=== PATIENT | female | born 2000 | race American Indian/Alaskan Native ===

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

== ENCOUNTER 2018-04-22 19:19 | Emergency (ER) | payer SELFPAY ==
[2018-04-22 20:56] LABS: Alanine Aminotransferase 16 units/L (7-56); Albumin 3.8 g/dL (3.9-5); BUN/Creatinine Ratio 16; Blood Urea Nitrogen 14 mg/dL (7-17); Calcium 8.7 mg/dL (8.4-10.2); Hemolysis Index 11; Lipase 27 units/L (13-60)
[2018-04-22 20:58] LABS: Basophils % (Auto) 0.5 % (0.0-1.8); Eosinophils # (Auto) 0.1 K/mm3 (0.0-0.4); Eosinophils % (Auto) 0.5 % (0.0-4.3); Hematocrit 40.5 % (30.3-42.9); Hemoglobin 13.6 gm/dl (10.1-14.3); Lymphocytes # (Auto) 3.2 K/mm3 (1.2-5.4); Lymphocytes % (Auto) 32.5 % (13.4-35.0); Mean Corpuscular HGB Conc 34 % (30-34); Mean Corpuscular Hemoglobin 32 pg (28-32); Mean Corpuscular Volume 94 fl (79-97); Monocytes # (Auto) 0.7 K/mm3 (0.0-0.8); Monocytes % (Auto) 7.3 % (0.0-7.3); Platelet Count 218 K/mm3 (140-440); Red Blood Count 4.29 M/mm3 (3.65-5.03)
[2018-04-22 22:16] LABS: Bilirubin,Urine NEG (Negative); Blood,Urine NEG (Negative); Color,Urine Yellow (Yellow); Mucus,Urine 3+ /HPF
--- NOTE | 2018-04-23 01:38 | Emergency Department Report ---
ED Abdominal Pain HPI - General Chief Complaint: Abdominal Pain Stated Complaint: 3WKS STOMACH PAIN Time Seen by Provider: 04/23/18 01:37 Source: patient, RN notes reviewed Mode of arrival: Ambulatory Limitations: No Limitations - History of Present Illness Initial Comments: This is a 17-year-old female who is not known to this provider who presents to the ER with a complaint of suprapubic and lower quadrant abdominal pain. The pain is sharp, increases with palpation and decreases with rest. She reports nausea and vomiting. She reports vomiting 5 times yesterday. She hasn't really vomited today. She denies change in symptoms when taking a hot shower. She denies vaginal discharge, and urinary symptoms. She reports a positive test 3 weeks ago. She reports that her nausea has mostly resolved and her pain has mostly resolved as well. Pain does not radiate anywhere. MD Complaint: abdominal pain -: Gradual Location: LLQ, suprapubic Migration to: LLQ, suprapubic Severity: moderate Quality: cramping Consistency: other Improves With: other Worsens With: other Associated Symptoms: nausea, vomiting. denies: diarrhea, fever, chills, constipation, dysuria, hematemesis, hematochezia, melena, hematuria, anorexia, syncope - Related Data Previous Rx's Medication Instructions Recorded Last Taken Type Cyclobenzaprine [Flexeril] 10 mg PO BID PRN #10 tablet 12/08/17 Unknown Rx Ibuprofen [Motrin] 600 mg PO Q8H PRN #30 tablet 12/08/17 Unknown Rx Acetaminophen [Tylenol Arthritis] 650 mg PO Q6HR PRN #30 tablet.er 04/23/18 Unknown Rx Ibuprofen [Motrin] 600 mg PO Q8H PRN #30 tablet 04/23/18 Unknown Rx Ondansetron [Zofran Odt] 4 mg PO Q8HR PRN #20 tab.rapdis 04/23/18 Unknown Rx Allergies Allergy/AdvReac Type Severity Reaction Status Date / Time Penicillins Allergy Hives Verified 12/08/17 12:08 ED Review of Systems ROS: Stated complaint: 3WKS STOMACH PAIN Other details as noted in HPI Comment: All other systems reviewed and negative ED Past Medical Hx - Past Medical History Previous Medical History?: Yes Hx Asthma: Yes Additional medical history: vaginal delivery 02-04-2015 - Surgical History Past Surgical History?: Yes Additional Surgical History: tonsils and adenoids - Social History Smoking Status: Current Some Day Smoker Substance Use Type: None - Medications Home Medications: Home Medications Medication Instructions Recorded Confirmed Last Taken Type Cyclobenzaprine [Flexeril] 10 mg PO BID PRN #10 tablet 12/08/17 Unknown Rx Ibuprofen [Motrin] 600 mg PO Q8H PRN #30 tablet 12/08/17 Unknown Rx Acetaminophen [Tylenol Arthritis] 650 mg PO Q6HR PRN #30 tablet.er 04/23/18 Unknown Rx Ibuprofen [Motrin] 600 mg PO Q8H PRN #30 tablet 04/23/18 Unknown Rx Ondansetron [Zofran Odt] 4 mg PO Q8HR PRN #20 tab.rapdis 04/23/18 Unknown Rx ED Physical Exam - General Limitations: No Limitations General appearance: alert, in no apparent distress - Head Head exam: Present: atraumatic, normocephalic - Eye Eye exam: Present: normal appearance, EOMI. Absent: nystagmus - ENT ENT exam: Present: normal exam, normal orophraynx, mucous membranes moist, normal external ear exam - Neck Neck exam: Present: normal inspection, full ROM - Respiratory Respiratory exam: Present: normal lung sounds bilaterally. Absent: respiratory distress - Cardiovascular Cardiovascular Exam: Present: regular rate, normal rhythm, normal heart sounds. Absent: bradycardia, tachycardia, irregular rhythm, systolic murmur, diastolic murmur, rubs, gallop - GI/Abdominal GI/Abdominal exam: Present: soft, tenderness (suprapubic and left lower quadrant tenderness. There is no rebound, guarding or peritoneal signs), normal bowel sounds. Absent: distended, guarding, rebound, rigid, pulsatile mass - External exam: Present: normal external exam. Absent: lesions Speculum exam: Present: normal speculum exam. Absent: cervical discharge, vaginal bleeding Bi-manual exam: Present: normal bi-manual exam, other (chaperoned by nurse Vijaya Pruitt). Absent: cervical motion tendernes, adnexal tenderness, adnexal mass, uterine enlargement, uterine tenderness - Extremities Exam Extremities exam: Present: normal inspection, full ROM, normal capillary refill , other (2+ pulses noted in the bilateral upper, lower extremities. Compartments soft. No long bony tenderness. The pelvis is stable.). Absent: tenderness, pedal edema, joint swelling, calf tenderness - Back Exam Back exam: Present: normal inspection, full ROM. Absent: tenderness, CVA tenderness (R), paraspinal tenderness, vertebral tenderness - Neurological Exam Neurological exam: Present: alert, oriented X3, CN II-XII intact, normal gait, other (Extraocular movements intact. Tongue midline. No facial droop. Facial sensation intact to light touch in the V1, V2, V3 distribution bilaterally. 5 and 5 strength in 4 extremities.. Sensation is intact to light touch in 4 extremities.). Absent: motor sensory deficit - Psychiatric Psychiatric exam: Present: normal affect, normal mood - Skin Skin exam: Present: warm, dry, intact, normal color. Absent: rash ED Course Vital Signs 04/22/18 20:15 Temperature 98.7 F Pulse Rate 90 Respiratory 17 Rate Blood Pressure 107/72 O2 Sat by Pulse 100 Oximetry - Reevaluation(s) Reevaluation #1: 04/23/18 04:50 Differential diagnosis, including but not limited to: Constipation, ovarian cyst , ovarian torsion, pelvic inflammatory disease, appendicitis, miscarriage Assessment and plan: 17-year-old female with reported lower abdominal pain, nausea, now resolved. She is afebrile with reassuring vital signs. She had some lower abdominal tenderness but a benign gynecologic examination. Objective imaging studies are unremarkable. Patient felt improved after appropriate pain medication. Incidentally found to be mildly hypoglycemic on laboratory studies but not clinically, she was given oral feeds which she tolerated without difficulty, and her sugar improved. She can follow up with an outpatient primary care doctor or regional guide. 04/23/18 04:53 ED Medical Decision Making - Lab Data Result diagrams: 04/22/18 20:28 04/22/18 20:28 Vital Signs 04/22/18 20:15 Temperature 98.7 F Pulse Rate 90 Respiratory 17 Rate Blood Pressure 107/72 O2 Sat by Pulse 100 Oximetry Lab Results 04/22/18 04/22/18 04/22/18 Range/Units 20:28 20:28 20:28 WBC 9.9 (4.5-11.0) K/mm3 RBC 4.29 (3.65-5.03) M/mm3 Hgb 13.6 (10.1-14.3) gm/dl Hct 40.5 (30.3-42.9) % MCV 94 (79-97) fl MCH 32 (28-32) pg MCHC 34 (30-34) % RDW 13.0 L (13.2-15.2) % Plt Count 218 (140-440) K/mm3 Lymph % (Auto) 32.5 (13.4-35.0) % Mckenzie % (Auto) 7.3 (0.0-7.3) % Eos % (Auto) 0.5 (0.0-4.3) % Baso % (Auto) 0.5 (0.0-1.8) % Lymph # 3.2 (1.2-5.4) K/mm3 Mckenzie # 0.7 (0.0-0.8) K/mm3 Eos # 0.1 (0.0-0.4) K/mm3 Baso # 0.0 (0.0-0.1) K/mm3 Seg Neutrophils % 59.2 (40.0-70.0) % Seg Neutrophils # 5.9 (1.8-7.7) K/mm3 Sodium 141 (137-145) mmol/L Potassium 4.2 (3.6-5.0) mmol/L Chloride 105.5 (98-107) mmol/L Carbon Dioxide 26 (22-30) mmol/L Anion Gap 14 mmol/L BUN 14 (7-17) mg/dL Creatinine 0.9 (0.7-1.2) mg/dL Estimated GFR > 60 ml/min BUN/Creatinine Ratio 16 % Glucose 64 L (65-100) mg/dL Calcium 8.7 (8.4-10.2) mg/dL Total Bilirubin 0.20 (0.1-1.2) mg/dL AST 18 (5-40) units/L ALT 16 (7-56) units/L Alkaline Phosphatase 47 (35-129) units/L Total Protein 5.8 L (6.3-8.2) g/dL Albumin 3.8 L (3.9-5) g/dL Albumin/Globulin Ratio 1.9 % Lipase 27 (13-60) units/L HCG, Qual Negative (Negative) Urine Color (Yellow) Urine Turbidity (Clear) Urine pH (5.0-7.0) Ur Specific [place] (1.003-1.030) Urine Protein (Negative) mg/dL Urine Glucose (UA) (Negative) mg/dL Urine Ketones (Negative) mg/dL Urine Blood (Negative) Urine Nitrite (Negative) Urine Bilirubin (Negative) Urine Urobilinogen (<2.0) mg/dL Ur Leukocyte Esterase (Negative) Urine WBC (Auto) (0.0-6.0) /HPF Urine RBC (Auto) (0.0-6.0) /HPF U Epithel Cells (Auto) (0-13.0) /HPF Urine Mucus /HPF 04/22/18 Range/Units 21:49 WBC (4.5-11.0) K/mm3 RBC (3.65-5.03) M/mm3 Hgb (10.1-14.3) gm/dl Hct (30.3-42.9) % MCV (79-97) fl MCH (28-32) pg MCHC (30-34) % RDW (13.2-15.2) % Plt Count (140-440) K/mm3 Lymph % (Auto) (13.4-35.0) % Mckenzie % (Auto) (0.0-7.3) % Eos % (Auto) (0.0-4.3) % Baso % (Auto) (0.0-1.8) % Lymph # (1.2-5.4) K/mm3 Mckenzie # (0.0-0.8) K/mm3 Eos # (0.0-0.4) K/mm3 Baso # (0.0-0.1) K/mm3 Seg Neutrophils % (40.0-70.0) % Seg Neutrophils # (1.8-7.7) K/mm3 Sodium (137-145) mmol/L Potassium (3.6-5.0) mmol/L Chloride (98-107) mmol/L Carbon Dioxide (22-30) mmol/L Anion Gap mmol/L BUN (7-17) mg/dL Creatinine (0.7-1.2) mg/dL Estimated GFR ml/min BUN/Creatinine Ratio % Glucose (65-100) mg/dL Calcium (8.4-10.2) mg/dL Total Bilirubin (0.1-1.2) mg/dL AST (5-40) units/L ALT (7-56) units/L Alkaline Phosphatase (35-129) units/L Total Protein (6.3-8.2) g/dL Albumin (3.9-5) g/dL Albumin/Globulin Ratio % Lipase (13-60) units/L HCG, Qual (Negative) Urine Color Yellow (Yellow) Urine Turbidity Clear (Clear) Urine pH 5.0 (5.0-7.0) Ur Specific [place] 1.025 (1.003-1.030) Urine Protein 30 mg/dl (Negative) mg/dL Urine Glucose (UA) Neg (Negative) mg/dL Urine Ketones Neg (Negative) mg/dL Urine Blood Neg (Negative) Urine Nitrite Neg (Negative) Urine Bilirubin Neg (Negative) Urine Urobilinogen 4.0 (<2.0) mg/dL Ur Leukocyte Esterase Neg (Negative) Urine WBC (Auto) 2.0 (0.0-6.0) /HPF Urine RBC (Auto) 1.0 (0.0-6.0) /HPF U Epithel Cells (Auto) 6.0 (0-13.0) /HPF Urine Mucus 3+ /HPF - Radiology Data Radiology results: report reviewed, image reviewed CT scan of the abdomen and pelvis is negative for acute disease Pelvic ultrasound is negative for acute disease Critical care attestation.: If time is entered above; I have spent that time in minutes in the direct care of this critically ill patient, excluding procedure time. ED Disposition Clinical Impression: Abdominal pain, History of nausea and vomiting Disposition: - TO HOME OR SELFCARE Is pt being admited?: No Does the pt Need Aspirin: No Condition: Stable Instructions: Abdominal Pain (ED) Additional Instructions: Advance diet as tolerated. Avoid heavy, spicy foods. Avoid Motrin, ibuprofen, Naprosyn, Aleve. The medications as needed/directed. Cultures was sent today and results will be available in the next 3-5 days. Have a primary care doctor or regional guide contact the medical records department to obtain culture results. Return to the ER right away with new pain, worsened pain, migration of pain, projectile vomiting, fevers or chills, inability to tolerate liquid feedings. Referrals: PRIMARY CAREMD [Primary Care Provider] - 3-5 Days [facility] [Provider Group] - 3-5 Days [facility] [Provider Group] - 3-5 Days
[2018-04-23] MEDS ORDERED: TYLENOL PO STA (01:44)
[2018-04-23] MEDS ORDERED: NACL 0.9% 1000 ML 1,000 ML IV ONE (01:44)
[2018-04-23] MEDS ORDERED: TORADOL IV ONE (01:44)
[2018-04-23] MEDS ORDERED: NACL 0.9% 50 ML ONE (02:52)
--- NOTE | 2018-04-23 02:57 | Ultrasound Report ---
FINAL REPORT PROCEDURE: US PELVIS DUPLEX DOPPLER COMP TECHNIQUE: Real-time transabdominal sonography in multiple planes of the pelvis was performed. The pelvic structures were not optimally visualized. Transvaginal sonography was then performed to better evaluate the structures and/or abnormalities described below with image documentation. Grayscale, color flow Doppler imaging and velocity spectral waveform analysis of the ovaries was employed (duplex imaging). CPT 15790, 49482, and 34834 HISTORY: lower abd pain COMPARISON: No prior studies are available for comparison. FINDINGS: UTERUS Size: 9.6 x 4.8 x 6.5 cm. Endometrial thickness: 18 mm. Thickened endometrial pattern with minimal fluid in the endometrium. Orientation: anteverted. Cervix: Normal. Fibroids/masses: None. RIGHT Ovary: 4.6 x 2.3 x 3.3 cm. Appearance: Normal. Doppler images: Normal spectral waveforms and color flow. The systolic and diastolic velocities are within normal limits. LEFT Ovary: 4 x 1.3 x 2.4 cm. Appearance: Normal. Doppler images: Normal spectral waveforms and color flow. The systolic and diastolic velocities are within normal limits. Pelvic fluid: None. Other: None. IMPRESSION: There is a thickened endometrial pattern with slight fluid in the endometrium. The remainder of the uterus imaging is normal. Both ovaries have a normal size and appearance.
--- NOTE | 2018-04-23 02:58 | Ultrasound Report ---
FINAL REPORT US PELVIS DUPLEX DOPPLER COMP TECHNIQUE: Real-time transabdominal sonography in multiple planes of the pelvis was performed. The pelvic structures were not optimally visualized. Transvaginal sonography was then performed to better evaluate the structures and/or abnormalities described below with image documentation. Grayscale, color flow Doppler imaging and velocity spectral waveform analysis of the ovaries was employed (duplex imaging). CPT 52450, 08602, and 55895 HISTORY: lower abd pain COMPARISON: No prior studies are available for comparison. FINDINGS: UTERUS Size: 9.6 x 4.8 x 6.5 cm. Endometrial thickness: 18 mm. Thickened endometrial pattern with minimal fluid in the endometrium. Orientation: anteverted. Cervix: Normal. Fibroids/masses: None. RIGHT Ovary: 4.6 x 2.3 x 3.3 cm. Appearance: Normal. Doppler images: Normal spectral waveforms and color flow. The systolic and diastolic velocities are within normal limits. LEFT Ovary: 4 x 1.3 x 2.4 cm. Appearance: Normal. Doppler images: Normal spectral waveforms and color flow. The systolic and diastolic velocities are within normal limits. Pelvic fluid: None. Other: None. IMPRESSION: There is a thickened endometrial pattern with slight fluid in the endometrium. The remainder of the uterus imaging is normal. Both ovaries have a normal size and appearance.
--- NOTE | 2018-04-23 04:08 | Cat Scan Report ---
FINAL REPORT PROCEDURE: CT ABDOMEN PELVIS W CON TECHNIQUE: Computerized axial tomography of the abdomen and pelvis was performed after the IV injection of iodinated nonionic contrast. HISTORY: lower abd pain n/v COMPARISON: No prior studies are available for comparison. FINDINGS: Visualized lower thorax: No significant abnormality. Liver: Normal size and attenuation. Spleen: Normal size and attenuation. Gallbladder and biliary system: Normal. Pancreas: Normal. Adrenals: Normal. Kidneys: Both kidneys have normal size. No hydronephrosis. No renal stones or masses. GI tract: No obstruction. No ileus or enteritis. The cecum, appendix and colon are normal. Moderate fecal debris in the colon.. Lymph nodes and mesentery: Normal. Vasculature: Normal. Bladder: Normal. Reproductive organs: Normal. Peritoneum: No free fluid. Musculoskeletal structures: No significant abnormality. Other: None. IMPRESSION: There is no evidence of intestinal or urinary tract obstruction. No ileus or enteritis.
[2018-04-23 06:14] VITALS: BP 94/52
== END 2018-04-23 06:00 | disposition home or self-care (01) ==
LOC: ED 19:19
DX: O26.891 Other specified pregnancy related conditions, first trimester (principal); R10.32 Left lower quadrant pain; O21.8 Other vomiting complicating pregnancy; O99.331 Smoking (tobacco) complicating pregnancy, first trimester; F17.200 Nicotine dependence, unspecified, uncomplicated; O99.511 Diseases of the respiratory system complicating pregnancy, first trimester; J45.909 Unspecified asthma, uncomplicated; E16.2 Hypoglycemia, unspecified; Z3A.01 Less than 8 weeks gestation of pregnancy; Z88.0 Allergy status to penicillin; Z90.49 Acquired absence of other specified parts of digestive tract; Z90.89 Acquired absence of other organs
CPT/HCPCS: 36415; 74177; 76830; 80053; 81001; 82962; 83690; 84703; 85025; 87210; 87591; 93975; 96361; 96374; 99285; J1885; J7030; Q9967

== ENCOUNTER 2018-09-10 09:15 | Emergency (ER) | payer SELFPAY ==
[2018-09-10 09:35] VITALS: BP 129/91
[2018-09-10 10:55] LABS: Bacteria,Urine 1+ /HPF (Negative); Bilirubin,Urine NEG (Negative); Blood,Urine NEG (Negative); Color,Urine Yellow (Yellow); Mucus,Urine FEW /HPF; Protein,Urine <15 mg/dL mg/dL (Negative)
[2018-09-10 11:00] LABS: HCG Qualitative,Urine Negative (Negative)
[2018-09-10] MEDS ORDERED: IBUPROFEN PO ONE (11:15)
--- NOTE | 2018-09-10 11:26 | Emergency Department Report ---
ED Female HPI - General Chief complaint: Abdominal Pain Stated complaint: ABD PAIN Time Seen by Provider: 09/10/18 11:05 Source: patient Mode of arrival: Ambulatory Limitations: No Limitations - History of Present Illness MD Complaint: dysuria, pelvic pain -: month(s) Location: suprapubic Radiation: non-radiating Quality: cramping, burning Consistency: intermittent (increased urgency and frequency. decrease production) Worsens with: urination Are you Now?: No Associated Symptoms: dysuria. denies: abdominal pain, nausea/vomiting, fever/chills, headaches, hematuria, rash, shortness of breath, syncope, weakness - Related Data Sexually active: Yes Previous Rx's Medication Instructions Recorded Last Taken Type Cyclobenzaprine [Flexeril] 10 mg PO BID PRN #10 tablet 12/08/17 Unknown Rx Ibuprofen [Motrin] 600 mg PO Q8H PRN #30 tablet 12/08/17 Unknown Rx Acetaminophen [Tylenol Arthritis] 650 mg PO Q6HR PRN #30 tablet.er 04/23/18 Unknown Rx Ibuprofen [Motrin] 600 mg PO Q8H PRN #30 tablet 04/23/18 Unknown Rx Ondansetron [Zofran Odt] 4 mg PO Q8HR PRN #20 tab.rapdis 04/23/18 Unknown Rx Meloxicam 15 mg PO DAILY #10 tablet 09/10/18 Unknown Rx Phenazopyridine [Pyridium] 200 mg PO BID PRN #10 tab 09/10/18 Unknown Rx Sulfamethoxazole/Trimethoprim 1 each PO BID #20 tablet 09/10/18 Unknown Rx [Bactrim DS TAB] Allergies Allergy/AdvReac Type Severity Reaction Status Date / Time Penicillins Allergy Hives Verified 09/10/18 09:30 ED Review of Systems ROS: Stated complaint: ABD PAIN Other details as noted in HPI Constitutional: denies: chills, fever Eyes: denies: eye pain, eye discharge, vision change ENT: denies: ear pain, throat pain Respiratory: denies: cough, shortness of breath, wheezing Cardiovascular: denies: chest pain, palpitations Endocrine: no symptoms reported Gastrointestinal: denies: abdominal pain, nausea, diarrhea Genitourinary: urgency, dysuria. denies: discharge Musculoskeletal: denies: back pain, joint swelling, arthralgia Skin: denies: rash, lesions Neurological: denies: headache, weakness, paresthesias Psychiatric: denies: anxiety, depression Hematological/Lymphatic: denies: easy bleeding, easy bruising ED Past Medical Hx - Past Medical History Previous Medical History?: Yes Hx Asthma: Yes Additional medical history: vaginal delivery 02-04-2015 - Surgical History Past Surgical History?: Yes Additional Surgical History: tonsils and adenoids - Social History Smoking Status: Never Smoker Substance Use Type: Marijuana - Medications Home Medications: Home Medications Medication Instructions Recorded Confirmed Last Taken Type Cyclobenzaprine [Flexeril] 10 mg PO BID PRN #10 tablet 12/08/17 Unknown Rx Ibuprofen [Motrin] 600 mg PO Q8H PRN #30 tablet 12/08/17 Unknown Rx Acetaminophen [Tylenol Arthritis] 650 mg PO Q6HR PRN #30 tablet.er 04/23/18 Unknown Rx Ibuprofen [Motrin] 600 mg PO Q8H PRN #30 tablet 04/23/18 Unknown Rx Ondansetron [Zofran Odt] 4 mg PO Q8HR PRN #20 tab.rapdis 04/23/18 Unknown Rx Meloxicam 15 mg PO DAILY #10 tablet 09/10/18 Unknown Rx Phenazopyridine [Pyridium] 200 mg PO BID PRN #10 tab 09/10/18 Unknown Rx Sulfamethoxazole/Trimethoprim 1 each PO BID #20 tablet 09/10/18 Unknown Rx [Bactrim DS TAB] ED Physical Exam - General Limitations: No Limitations General appearance: alert, in no apparent distress - Head Head exam: Present: atraumatic, normocephalic - Eye Eye exam: Present: normal appearance, PERRL, EOMI Pupils: Present: normal accommodation - ENT ENT exam: Present: mucous membranes moist - Neck Neck exam: Present: normal inspection, full ROM. Absent: tenderness, meningismus - Respiratory Respiratory exam: Present: normal lung sounds bilaterally. Absent: respiratory distress - Cardiovascular Cardiovascular Exam: Present: regular rate, normal rhythm. Absent: systolic murmur, diastolic murmur, rubs, gallop - GI/Abdominal GI/Abdominal exam: Present: soft, tenderness (suprapubic region.), normal bowel sounds. Absent: hyperactive bowel sounds, hypoactive bowel sounds, organomegaly, bruit - Extremities Exam Extremities exam: Present: normal inspection, full ROM, tenderness (riight shoulder wtih rom. pain wtih doyle and obriens. no sulcus sign. Clerical Assistant 5/5), normal capillary refill - Back Exam Back exam: Present: normal inspection, full ROM. Absent: CVA tenderness (R), CVA tenderness (L) - Neurological Exam Neurological exam: Present: alert, oriented X3, CN II-XII intact, normal gait - Psychiatric Psychiatric exam: Present: normal affect, normal mood - Skin Skin exam: Present: warm, dry, intact, normal color. Absent: rash ED Course Vital Signs 09/10/18 09:30 Temperature 98.1 F Pulse Rate 96 H Respiratory 18 Rate Blood Pressure 129/91 O2 Sat by Pulse 100 Oximetry Critical care attestation.: If time is entered above; I have spent that time in minutes in the direct care of this critically ill patient, excluding procedure time. ED Disposition Clinical Impression: Dysuria, Shoulder pain Disposition: DC-01 TO HOME OR SELFCARE Is pt being admited?: No Does the pt Need Aspirin: No Condition: Stable Instructions: Dysuria (ED), Abdominal Pain (ED), Arthralgia (ED) Prescriptions: Meloxicam 15 mg PO DAILY #10 tablet Phenazopyridine [Pyridium] 200 mg PO BID PRN #10 tab PRN Reason: dysuria Sulfamethoxazole/Trimethoprim [Bactrim DS TAB] 1 each PO BID #20 tablet Referrals: [facility] [Provider Group] - 3-5 Days
== END 2018-09-10 11:35 | disposition home or self-care (01) ==
LOC: ED 09:15
DX: R30.0 Dysuria (principal); R10.2 Pelvic and perineal pain; R35.0 Frequency of micturition; M25.511 Pain in right shoulder; J45.909 Unspecified asthma, uncomplicated; F12.10 Cannabis abuse, uncomplicated; Z90.89 Acquired absence of other organs; Z88.0 Allergy status to penicillin
CPT/HCPCS: 81001; 81025; 99283

== ENCOUNTER 2019-04-26 18:52 | Emergency (ER) | payer SELFPAY ==
[2019-04-26 19:22] VITALS: BP 138/98
--- NOTE | 2019-04-26 19:22 | Event Note ---
ED Screening Note ED Screening Note: pt presents with nasal congestion +cough +sneezing +rhinorrhea chest discomfort with frequent coughing no fever no sick contacts PMHx asthma does not have an inhaler allergy to PCN and bactrim This initial assessment/diagnostic orders/clinical plan/treatment(s) is/are subject to change based on patients health status, clinical progression and re- assessment by fellow clinical providers in the ED. Further treatment and workup at subsequent clinical providers discretion. Patient/guardian urged not to elope from the ED as their condition may be serious if not clinically assessed and managed. Initial orders include: urine preg, CXR, neb tx
[2019-04-26] MEDS ORDERED: DECADRON IM ONE (19:23)
[2019-04-26] MEDS ORDERED: DUONEB *Not for PRN Use IH ONE (19:23)
[2019-04-26 21:39] LABS: HCG Qualitative,Urine Negative (Negative)
--- NOTE | 2019-04-26 22:34 | XRay Report ---
CHEST 2 VIEWS INDICATION / CLINICAL INFORMATION: Cough, congestion and chest pain starting yesterday. COMPARISON: None available. FINDINGS: SUPPORT DEVICES: None. HEART / MEDIASTINUM: The heart size and pulmonary vasculature are normal. LUNGS / PLEURA: No significant pulmonary or pleural abnormality. No pneumothorax. ADDITIONAL FINDINGS: No significant additional findings. IMPRESSION: No acute findings. Signer Name: Cj Patricia MD Signed: 04/26/2019 10:30 PM Workstation Name: [id number]
--- NOTE | 2019-04-26 22:42 | Emergency Department Report ---
Upper Respiratory HPI - HPI Chief Complaint: Upper Respiratory Infection Stated Complaint: CHEST PAIN/COLD SX Time Seen by Provider: 04/26/19 19:19 Duration: 1 Day URI Symptoms: Rhinorrhea: Yes, Ear Pain: No, Cough: Yes, Shortness of Breath: No, Sick Contacts: No, Unable to Take Fluids: No, Urine Output Abnormal: No, Listless Behavior: No Other History: This is a 18-year-old female nontoxic, well nourished in appearance, no acute signs of distress presents to the ED with c/o of wheezing, cough, rhinorrhea, and nasal congestion x2 days. Patient describes productive cough as yellow mucus production. Patient denies any sick contact. Patient denies any recent travels, long car, recent hospital stays. Patient denies any calf pain or calf tenderness. Patient denies any chest pain, short of breath, fever, chills, nausea, vomiting, hemoptysis, numbness, tingling, headache or stiff neck. - Home Meds and Allergies Home Medications: Previous Rx's Medication Instructions Recorded Last Taken Type Cyclobenzaprine [Flexeril] 10 mg PO BID PRN #10 tablet 12/08/17 Unknown Rx Ibuprofen [Motrin] 600 mg PO Q8H PRN #30 tablet 12/08/17 Unknown Rx Acetaminophen [Tylenol Arthritis] 650 mg PO Q6HR PRN #30 tablet.er 04/23/18 Unknown Rx Ibuprofen [Motrin] 600 mg PO Q8H PRN #30 tablet 04/23/18 Unknown Rx Ondansetron [Zofran Odt] 4 mg PO Q8HR PRN #20 tab.rapdis 04/23/18 Unknown Rx Meloxicam 15 mg PO DAILY #10 tablet 09/10/18 Unknown Rx Phenazopyridine [Pyridium] 200 mg PO BID PRN #10 tab 09/10/18 Unknown Rx Sulfamethoxazole/Trimethoprim 1 each PO BID #20 tablet 09/10/18 Unknown Rx [Bactrim DS TAB] ALBUTEROL Inhaler (OR & NICU) 2 puff IH QID PRN #1 inhalation 04/26/19 Unknown Rx [ProAir HFA Inhaler] Benzonatate [Tessalon Perles] 100 mg PO Q8HR PRN #20 capsule 04/26/19 Unknown Rx Prednisone [predniSONE 10 mg 10 mg PO .TAPER #1 tab.ds.pk 04/26/19 Unknown Rx (6-Day Pack, 21 Tabs)] Allergies/Adverse Reactions: Allergies Allergy/AdvReac Type Severity Reaction Status Date / Time Penicillins Allergy Hives Verified 04/26/19 18:55 sulfamethoxazole Allergy Hives Verified 04/26/19 18:55 [From Bactrim] trimethoprim [From Bactrim] Allergy Hives Verified 04/26/19 18:55 ED Review of Systems ROS: Stated complaint: CHEST PAIN/COLD SX Other details as noted in HPI Constitutional: denies: chills, fever Eyes: denies: eye pain, eye discharge, vision change ENT: congestion. denies: ear pain, throat pain Respiratory: cough, wheezing. denies: shortness of breath Cardiovascular: denies: chest pain, palpitations Endocrine: no symptoms reported Gastrointestinal: denies: abdominal pain, nausea, diarrhea Genitourinary: denies: urgency, dysuria, discharge Musculoskeletal: denies: back pain, joint swelling, arthralgia Skin: denies: rash, lesions Neurological: denies: headache, weakness, paresthesias Psychiatric: denies: anxiety, depression Hematological/Lymphatic: denies: easy bleeding, easy bruising ED Past Medical Hx - Past Medical History Hx Asthma: Yes Additional medical history: vaginal delivery 02-04-2015 - Surgical History Additional Surgical History: tonsils and adenoids - Social History Smoking Status: Never Smoker Substance Use Type: None - Medications Home Medications: Home Medications Medication Instructions Recorded Confirmed Last Taken Type Cyclobenzaprine [Flexeril] 10 mg PO BID PRN #10 tablet 12/08/17 Unknown Rx Ibuprofen [Motrin] 600 mg PO Q8H PRN #30 tablet 12/08/17 Unknown Rx Acetaminophen [Tylenol Arthritis] 650 mg PO Q6HR PRN #30 tablet.er 04/23/18 Unknown Rx Ibuprofen [Motrin] 600 mg PO Q8H PRN #30 tablet 04/23/18 Unknown Rx Ondansetron [Zofran Odt] 4 mg PO Q8HR PRN #20 tab.rapdis 04/23/18 Unknown Rx Meloxicam 15 mg PO DAILY #10 tablet 09/10/18 Unknown Rx Phenazopyridine [Pyridium] 200 mg PO BID PRN #10 tab 09/10/18 Unknown Rx Sulfamethoxazole/Trimethoprim 1 each PO BID #20 tablet 09/10/18 Unknown Rx [Bactrim DS TAB] ALBUTEROL Inhaler (OR & NICU) 2 puff IH QID PRN #1 inhalation 04/26/19 Unknown Rx [ProAir HFA Inhaler] Benzonatate [Tessalon Perles] 100 mg PO Q8HR PRN #20 capsule 04/26/19 Unknown Rx Prednisone [predniSONE 10 mg 10 mg PO .TAPER #1 tab.ds.pk 04/26/19 Unknown Rx (6-Day Pack, 21 Tabs)] ED Bronchiolitis Physical Exam - Exam General: Vital signs noted. No distress. Alert and acting appropriately. Neurologic: Alert and oriented, no deficits. Musculoskeletal: Unremarkable. ED Bronchiolitis Tests - Testing Testing: CXR: Normal/Negative ED Physical Exam - General Limitations: No Limitations General appearance: alert, in no apparent distress - Head Head exam: Present: atraumatic, normocephalic - Neck Neck exam: Present: normal inspection, full ROM. Absent: tenderness, meningismus, lymphadenopathy - Respiratory Respiratory exam: Present: normal lung sounds bilaterally, wheezes (bilateral upper and lower lobes). Absent: respiratory distress, rales, rhonchi, stridor, chest wall tenderness, accessory muscle use, decreased breath sounds, prolonged expiratory - Cardiovascular Cardiovascular Exam: Present: regular rate, normal rhythm, normal heart sounds. Absent: irregular rhythm, systolic murmur, diastolic murmur, rubs, gallop - Back Exam Back exam: Present: normal inspection, full ROM - Neurological Exam Neurological exam: Present: alert, oriented X3, normal gait - Psychiatric Psychiatric exam: Present: normal affect, normal mood - Skin Skin exam: Present: warm, dry, intact, normal color. Absent: rash ED Course Vital Signs 04/26/19 19:20 Temperature 98.8 F Pulse Rate 105 H Respiratory 18 Rate Blood Pressure 138/98 O2 Sat by Pulse 99 Oximetry - Reevaluation(s) Reevaluation #1: 04/26/19 22:40 Patient is speaking in full sentences with no signs of distress noted. ED Medical Decision Making - Medical Decision Making This is a 18-year-old female that presents with bronchitis. Patient is stable and was examined by me. Chest x-ray has been obtained and dictated by radi ologist with normal exam. Patient is notified of x-ray results with no questions noted. Patient received a breathing treatment and steroids and wheezing has subsided. They stated that she feels much better. Patient was instructed to increase hydration, rest and take Motrin for fever episodes. Vitals stable. Patient is nonfebrile and normal heart rate. Patient was instructed Follow-up with a primary care doctor in 3-5 days or if symptoms worsen and continue return to emergency room as soon as possible. At time time of discharge, the patient does not seem toxic or ill in appearance. No acute signs of distress noted. Patient agrees to discharge treatment plan of care. No further questions noted by the patient. Critical care attestation.: If time is entered above; I have spent that time in minutes in the direct care of this critically ill patient, excluding procedure time. ED Disposition Clinical Impression: Bronchitis Disposition: - TO HOME OR SELFCARE Is pt being admited?: No Does the pt Need Aspirin: No Condition: Stable Instructions: Acute Bronchitis (ED) Additional Instructions: Follow-up with a primary care doctor in 3-5 days or if symptoms worsen and continue return to emergency room as soon as possible. Prescriptions: Prednisone [predniSONE 10 mg (6-Day Pack, 21 Tabs)] 10 mg PO .TAPER #1 tab.ds.pk ALBUTEROL Inhaler (OR & NICU) [ProAir HFA Inhaler] 2 puff IH QID PRN #1 inhalation PRN Reason: Shortness Of Breath Benzonatate [Tessalon Perles] 100 mg PO Q8HR PRN #20 capsule PRN Reason: Cough Referrals: [facility] MD ELISA [Primary Care Provider] - 3-5 Days PRIMARY MD MISSY [Referring] - 3-5 Days MELINA ROSE MD [Staff Physician] - 3-5 Days [facility] [Outside] - 3-5 Days [facility] [Outside] - 3-5 Days Forms: Work/School Release Form(ED)
== END 2019-04-26 22:55 | disposition home or self-care (01) ==
LOC: ED 18:52
DX: J40 Bronchitis, not specified as acute or chronic (principal); Z79.899 Other long term (current) drug therapy; Z88.0 Allergy status to penicillin; Z88.8 Allergy status to other drugs, medicaments and biological substances
CPT/HCPCS: 71046; 81025; 94640; 96372; 99284; J1100

== ENCOUNTER 2019-06-21 01:48 | Emergency (ER) | payer SELFPAY ==
[2019-06-21 01:56] VITALS: BP 129/81
[2019-06-21 02:55] LABS: Basophils % (Auto) 0.4 % (0.0-1.8); Eosinophils % (Auto) 0.3 % (0.0-4.3); Hematocrit 40.5 % (30.3-42.9); Hemoglobin 13.4 gm/dl (10.1-14.3); Lymphocytes # (Auto) 1.9 K/mm3 (1.2-5.4); Lymphocytes % (Auto) 19.2 % (13.4-35.0); Mean Corpuscular HGB Conc 33 % (30-34); Mean Corpuscular Volume 93 fl (79-97); Monocytes # (Auto) 0.5 K/mm3 (0.0-0.8); Platelet Count 269 K/mm3 (140-440); Red Blood Count 4.37 M/mm3 (3.65-5.03); Red Cell Distribution Width 12.8 % (13.2-15.2)
[2019-06-21 03:00] LABS: Bilirubin,Urine NEG (Negative); Blood,Urine NEG (Negative); Color,Urine Yellow (Yellow); Mucus,Urine FEW /HPF; Protein,Urine <15 mg/dL mg/dL (Negative)
[2019-06-21 03:07] LABS: BUN/Creatinine Ratio 18; Blood Urea Nitrogen 11 mg/dL (7-17); Calcium 9.9 mg/dL (8.4-10.2); Hemolysis Index 39
[2019-06-21] MEDS ORDERED: ZOFRAN ONE (04:12)
[2019-06-21] MEDS ORDERED: NACL 0.9% 1000 ML 1,000 ML ONE (04:13)
[2019-06-21] MEDS ORDERED: NACL 0.9% 1000 ML 1,000 ML IV ONE (04:17)
[2019-06-21] MEDS ORDERED: ZOFRAN IV ONE (04:17)
[2019-06-21] MEDS ORDERED: TYLENOL PO ONE (04:24)
--- NOTE | 2019-06-21 04:34 | Emergency Department Report ---
ED HPI - General Chief complaint: Abdominal Pain Stated complaint: LT SIDE ABD PAIN Time Seen by Provider: 06/21/19 03:35 Source: patient Mode of arrival: Wheelchair Limitations: No Limitations - History of Present Illness Initial comments: Patient is a 18-year-old female presents emergency room with complaints of lower abdominal discomfort and intermittent nausea and vomiting that began tonight. pt states she has a known left ovarian cyst. States she is currently 6 weeks . pt states that she has an appointment with [facility] today (06/21/19). She denies any urinary symptoms, fever, diarrhea, vaginal discharge, vaginal bleeding. She states she has a past medical history of asthma. She states she has allergies to Bactrim and penicillin. /P:1/A:0 - Related Data Previous Rx's Medication Instructions Recorded Last Taken Type Cyclobenzaprine [Flexeril] 10 mg PO BID PRN #10 tablet 12/08/17 Unknown Rx Ibuprofen [Motrin] 600 mg PO Q8H PRN #30 tablet 12/08/17 Unknown Rx Acetaminophen [Tylenol Arthritis] 650 mg PO Q6HR PRN #30 tablet.er 04/23/18 Unknown Rx Ibuprofen [Motrin] 600 mg PO Q8H PRN #30 tablet 04/23/18 Unknown Rx Ondansetron [Zofran Odt] 4 mg PO Q8HR PRN #20 tab.rapdis 04/23/18 Unknown Rx Meloxicam 15 mg PO DAILY #10 tablet 09/10/18 Unknown Rx Phenazopyridine [Pyridium] 200 mg PO BID PRN #10 tab 09/10/18 Unknown Rx Sulfamethoxazole/Trimethoprim 1 each PO BID #20 tablet 09/10/18 Unknown Rx [Bactrim DS TAB] ALBUTEROL Inhaler (OR & NICU) 2 puff IH QID PRN #1 inhalation 04/26/19 Unknown Rx [ProAir HFA Inhaler] Benzonatate [Tessalon Perles] 100 mg PO Q8HR PRN #20 capsule 04/26/19 Unknown Rx Prednisone [predniSONE 10 mg 10 mg PO .TAPER #1 tab.ds.pk 04/26/19 Unknown Rx (6-Day Pack, 21 Tabs)] Allergies Allergy/AdvReac Type Severity Reaction Status Date / Time Penicillins Allergy Hives Verified 04/26/19 18:55 sulfamethoxazole Allergy Hives Verified 04/26/19 18:55 [From Bactrim] trimethoprim [From Bactrim] Allergy Hives Verified 04/26/19 18:55 ED Review of Systems ROS: Stated complaint: LT SIDE ABD PAIN Other details as noted in HPI Comment: All other systems reviewed and negative ED Past Medical Hx - Past Medical History Previous Medical History?: Yes Hx Asthma: Yes Additional medical history: vaginal delivery 02-04-2015 - Surgical History Past Surgical History?: Yes Additional Surgical History: tonsils and adenoids - Social History Smoking Status: Former Smoker Substance Use Type: None - Medications Home Medications: Home Medications Medication Instructions Recorded Confirmed Last Taken Type Cyclobenzaprine [Flexeril] 10 mg PO BID PRN #10 tablet 12/08/17 Unknown Rx Ibuprofen [Motrin] 600 mg PO Q8H PRN #30 tablet 12/08/17 Unknown Rx Acetaminophen [Tylenol Arthritis] 650 mg PO Q6HR PRN #30 tablet.er 04/23/18 Unknown Rx Ibuprofen [Motrin] 600 mg PO Q8H PRN #30 tablet 04/23/18 Unknown Rx Ondansetron [Zofran Odt] 4 mg PO Q8HR PRN #20 tab.rapdis 04/23/18 Unknown Rx Meloxicam 15 mg PO DAILY #10 tablet 09/10/18 Unknown Rx Phenazopyridine [Pyridium] 200 mg PO BID PRN #10 tab 09/10/18 Unknown Rx Sulfamethoxazole/Trimethoprim 1 each PO BID #20 tablet 09/10/18 Unknown Rx [Bactrim DS TAB] ALBUTEROL Inhaler (OR & NICU) 2 puff IH QID PRN #1 inhalation 04/26/19 Unknown Rx [ProAir HFA Inhaler] Benzonatate [Tessalon Perles] 100 mg PO Q8HR PRN #20 capsule 04/26/19 Unknown Rx Prednisone [predniSONE 10 mg 10 mg PO .TAPER #1 tab.ds.pk 04/26/19 Unknown Rx (6-Day Pack, 21 Tabs)] ED Physical Exam - General Limitations: No Limitations General appearance: alert, in no apparent distress - Head Head exam: Present: atraumatic, normocephalic - Eye Eye exam: Present: normal appearance - ENT ENT exam: Present: mucous membranes moist - Respiratory Respiratory exam: Present: normal lung sounds bilaterally. Absent: respiratory distress, wheezes, rales, rhonchi, stridor, chest wall tenderness, accessory muscle use, decreased breath sounds, prolonged expiratory - Cardiovascular Cardiovascular Exam: Present: regular rate, normal rhythm, normal heart sounds. Absent: systolic murmur, diastolic murmur, rubs, gallop - GI/Abdominal GI/Abdominal exam: Present: soft, tenderness (mild suprapubic and left sided pelvic TTP), normal bowel sounds. Absent: distended, guarding, rebound, rigid - Back Exam Back exam: Absent: CVA tenderness (R), CVA tenderness (L) - Neurological Exam Neurological exam: Present: alert, oriented X3 - Psychiatric Psychiatric exam: Present: normal affect, normal mood - Skin Skin exam: Present: warm, dry, intact ED Course Vital Signs 06/21/19 01:51 Temperature 98.7 F Pulse Rate 90 Respiratory 18 Rate Blood Pressure 129/81 O2 Sat by Pulse 99 Oximetry ED Medical Decision Making - Lab Data Result diagrams: 06/21/19 02:18 06/21/19 02:18 Lab Results 06/21/19 06/21/19 06/21/19 Range/Units 02:18 02:18 02:18 WBC 10.0 (4.5-11.0) K/mm3 RBC 4.37 (3.65-5.03) M/mm3 Hgb 13.4 (10.1-14.3) gm/dl Hct 40.5 (30.3-42.9) % MCV 93 (79-97) fl MCH 31 (28-32) pg MCHC 33 (30-34) % RDW 12.8 L (13.2-15.2) % Plt Count 269 (140-440) K/mm3 Lymph % (Auto) 19.2 (13.4-35.0) % [place] % (Auto) 5.0 (0.0-7.3) % Eos % (Auto) 0.3 (0.0-4.3) % Baso % (Auto) 0.4 (0.0-1.8) % Lymph # 1.9 (1.2-5.4) K/mm3 [place] # 0.5 (0.0-0.8) K/mm3 Eos # 0.0 (0.0-0.4) K/mm3 Baso # 0.0 (0.0-0.1) K/mm3 Seg Neutrophils % 75.1 H (40.0-70.0) % Seg Neutrophils # 7.5 (1.8-7.7) K/mm3 Sodium 136 L (137-145) mmol/L Potassium 3.8 (3.6-5.0) mmol/L Chloride 100.7 (98-107) mmol/L Carbon Dioxide 21 L (22-30) mmol/L Anion Gap 18 mmol/L BUN 11 (7-17) mg/dL Creatinine 0.6 L (0.7-1.2) mg/dL Estimated GFR > 60 ml/min BUN/Creatinine Ratio 18 % Glucose 90 (65-100) mg/dL Calcium 9.9 (8.4-10.2) mg/dL HCG, Quant 92245 H (0-4) mIU/mL Urine Color (Yellow) Urine Turbidity (Clear) Urine pH (5.0-7.0) Ur Specific [place] (1.003-1.030) Urine Protein (Negative) mg/dL Urine Glucose (UA) (Negative) mg/dL Urine Ketones (Negative) mg/dL Urine Blood (Negative) Urine Nitrite (Negative) Urine Bilirubin (Negative) Urine Urobilinogen (<2.0) mg/dL Ur Leukocyte Esterase (Negative) Urine WBC (Auto) (0.0-6.0) /HPF Urine RBC (Auto) (0.0-6.0) /HPF U Epithel Cells (Auto) (0-13.0) /HPF Urine WBC Clumps /HPF Urine Mucus /HPF 06/21/19 Range/Units Unknown WBC (4.5-11.0) K/mm3 RBC (3.65-5.03) M/mm3 Hgb (10.1-14.3) gm/dl Hct (30.3-42.9) % MCV (79-97) fl MCH (28-32) pg MCHC (30-34) % RDW (13.2-15.2) % Plt Count (140-440) K/mm3 Lymph % (Auto) (13.4-35.0) % [place] % (Auto) (0.0-7.3) % Eos % (Auto) (0.0-4.3) % Baso % (Auto) (0.0-1.8) % Lymph # (1.2-5.4) K/mm3 [place] # (0.0-0.8) K/mm3 Eos # (0.0-0.4) K/mm3 Baso # (0.0-0.1) K/mm3 Seg Neutrophils % (40.0-70.0) % Seg Neutrophils # (1.8-7.7) K/mm3 Sodium (137-145) mmol/L Potassium (3.6-5.0) mmol/L Chloride (98-107) mmol/L Carbon Dioxide (22-30) mmol/L Anion Gap mmol/L BUN (7-17) mg/dL Creatinine (0.7-1.2) mg/dL Estimated GFR ml/min BUN/Creatinine Ratio % Glucose (65-100) mg/dL Calcium (8.4-10.2) mg/dL HCG, Quant (0-4) mIU/mL Urine Color Yellow (Yellow) Urine Turbidity Cloudy (Clear) Urine pH 7.0 (5.0-7.0) Ur Specific [place] 1.026 (1.003-1.030) Urine Protein <15 mg/dl (Negative) mg/dL Urine Glucose (UA) Neg (Negative) mg/dL Urine Ketones Tr (Negative) mg/dL Urine Blood Neg (Negative) Urine Nitrite Neg (Negative) Urine Bilirubin Neg (Negative) Urine Urobilinogen 2.0 (<2.0) mg/dL Ur Leukocyte Esterase Tr (Negative) Urine WBC (Auto) 7.0 H (0.0-6.0) /HPF Urine RBC (Auto) 3.0 (0.0-6.0) /HPF U Epithel Cells (Auto) 10.0 (0-13.0) /HPF Urine WBC Clumps Few /HPF Urine Mucus Few /HPF - Medical Decision Making Patient is a 18-year-old female presents emergency room with complaints of lower abdominal discomfort and intermittent nausea and vomiting that began tonight. pt states she has a known left ovarian cyst. States she is currently 6 weeks . pt states that she has an appointment with [facility] today (06/21/19). She denies any urinary symptoms, fever, diarrhea, vaginal discharge, vaginal bleeding. She states she has a past medical history of asthma. She states she has allergies to Bactrim and penicillin. /P:1/A:0. on exam: mild suprapubic and left sided pelvic TTP. VSS. labs are stable. UA shows small amount of WBCs and trace leukocyte esterase, no nitrites. zofran and 1L of IVF were ordered for patient, pt told nurse she did not want the fluids. advised pt we would need to perform US to confirm IUP and to evaluate ovaries. I was informed by obed Stoner that pt did not want to wait for US to be performed, she advised semaj that she would just see her OB, pt signed out AMA Critical care attestation.: If time is entered above; I have spent that time in minutes in the direct care of this critically ill patient, excluding procedure time. ED Disposition Clinical Impression: Lower abdominal pain Qualifiers: Weeks of gestation: less than 8 weeks Qualified Code(s): Z3A.01 - Less than 8 weeks gestation of Nausea and vomiting Qualifiers: Vomiting type: unspecified Vomiting Intractability: non-intractable Qualified Code(s): R11.2 - Nausea with vomiting, unspecified Disposition: DC-07 LEFT AGAINST MED ADVICE Is pt being admited?: No Does the pt Need Aspirin: No Condition: Undetermined Instructions: Abdominal Pain (ED) Referrals: PRIMARY CARE, [Primary Care Provider] - 3-5 Days Forms: AMA Form
== END 2019-06-21 04:26 | disposition left against medical advice (07) ==
LOC: ED 01:48
DX: O26.891 Other specified pregnancy related conditions, first trimester (principal); R10.30 Lower abdominal pain, unspecified; O21.9 Vomiting of pregnancy, unspecified; O99.511 Diseases of the respiratory system complicating pregnancy, first trimester; J45.909 Unspecified asthma, uncomplicated; Z98.890 Other specified postprocedural states; Z87.891 Personal history of nicotine dependence; Z79.899 Other long term (current) drug therapy; Z88.0 Allergy status to penicillin; Z88.8 Allergy status to other drugs, medicaments and biological substances; Z3A.01 Less than 8 weeks gestation of pregnancy
CPT/HCPCS: 36415; 80048; 81001; 84702; 85025; 96374; 99284; J2405; J7030

== ENCOUNTER 2019-07-01 20:36 | Emergency (ER) | payer SELFPAY ==
--- NOTE | 2019-07-01 20:55 | Emergency Department Report ---
ED HPI - General Chief complaint: Urogenital-Female Stated complaint: FLUID RELEASE Time Seen by Provider: 07/01/19 20:49 Source: patient, EMS Mode of arrival: Stretcher Limitations: No Limitations - History of Present Illness Initial comments: Patient is a 18-year-old female that presents emergency room with complaints of clear fluid flowing from her vagina. Patient states she is 8 weeks . Patient states her symptoms started approximately 1 hour ago. Patient states she was asleep when this happened. Patient states she was sexually active today at 12 PM and it felt normal. Patient states she is a . Patient states she has a 4-year-old that was full-term. Patient denies Case with previous pregnancies. Patient denies blood per vagina. Patient denies abdominal pain. Patient denies fever and chills. MD Complaint: vaginal discharge -: Sudden Location: pelvis Severity scale (0 -10): 0 Consistency: constant Improves with: none Worsens with: none Associated symptoms: vaginal discharge. denies: nausea/vomiting, vaginal bleeding, abdominal pain, dysuria, headache, vision changes, malaise, dysparuenia, rash, seizure, shortness of breath, syncope, weakness Vaginal bleeding: none :: Yes OB History - Current : no complications OB History - Previous Pregnancies: no complications Pre-graciela care: none - Related Data : 2 Para: 1 Ab: 0 Previous Rx's Medication Instructions Recorded Last Taken Type Cyclobenzaprine [Flexeril] 10 mg PO BID PRN #10 tablet 12/08/17 Unknown Rx Ibuprofen [Motrin] 600 mg PO Q8H PRN #30 tablet 12/08/17 Unknown Rx Acetaminophen [Tylenol Arthritis] 650 mg PO Q6HR PRN #30 tablet.er 04/23/18 Unknown Rx Ibuprofen [Motrin] 600 mg PO Q8H PRN #30 tablet 04/23/18 Unknown Rx Ondansetron [Zofran Odt] 4 mg PO Q8HR PRN #20 tab.rapdis 04/23/18 Unknown Rx Meloxicam 15 mg PO DAILY #10 tablet 09/10/18 Unknown Rx Phenazopyridine [Pyridium] 200 mg PO BID PRN #10 tab 09/10/18 Unknown Rx Sulfamethoxazole/Trimethoprim 1 each PO BID #20 tablet 09/10/18 Unknown Rx [Bactrim DS TAB] ALBUTEROL Inhaler (OR & NICU) 2 puff IH QID PRN #1 inhalation 04/26/19 Unknown Rx [ProAir HFA Inhaler] Benzonatate [Tessalon Perles] 100 mg PO Q8HR PRN #20 capsule 04/26/19 Unknown Rx Prednisone [predniSONE 10 mg 10 mg PO .TAPER #1 tab.ds.pk 04/26/19 Unknown Rx (6-Day Pack, 21 Tabs)] Allergies Allergy/AdvReac Type Severity Reaction Status Date / Time Penicillins Allergy Hives Verified 04/26/19 18:55 sulfamethoxazole Allergy Hives Verified 04/26/19 18:55 [From Bactrim] trimethoprim [From Bactrim] Allergy Hives Verified 04/26/19 18:55 ED Review of Systems ROS: Stated complaint: FLUID RELEASE Other details as noted in HPI Constitutional: denies: chills, fever Eyes: denies: eye pain, eye discharge, vision change ENT: denies: ear pain, throat pain Respiratory: denies: cough, shortness of breath, wheezing Cardiovascular: denies: chest pain, palpitations Endocrine: no symptoms reported Gastrointestinal: denies: abdominal pain, nausea, diarrhea Genitourinary: denies: urgency, dysuria, discharge Musculoskeletal: denies: back pain, joint swelling, arthralgia Skin: denies: rash, lesions Neurological: denies: headache, weakness, paresthesias Psychiatric: denies: anxiety, depression Hematological/Lymphatic: denies: easy bleeding, easy bruising ED Past Medical Hx - Past Medical History Previous Medical History?: Yes Hx Asthma: Yes Additional medical history: vaginal delivery 02-04-2015 - Surgical History Past Surgical History?: Yes Additional Surgical History: tonsils and adenoids - Family History Family history: no significant - Social History Smoking Status: Never Smoker Substance Use Type: None - Medications Home Medications: Home Medications Medication Instructions Recorded Confirmed Last Taken Type Cyclobenzaprine [Flexeril] 10 mg PO BID PRN #10 tablet 12/08/17 Unknown Rx Ibuprofen [Motrin] 600 mg PO Q8H PRN #30 tablet 12/08/17 Unknown Rx Acetaminophen [Tylenol Arthritis] 650 mg PO Q6HR PRN #30 tablet.er 04/23/18 Unknown Rx Ibuprofen [Motrin] 600 mg PO Q8H PRN #30 tablet 04/23/18 Unknown Rx Ondansetron [Zofran Odt] 4 mg PO Q8HR PRN #20 tab.rapdis 04/23/18 Unknown Rx Meloxicam 15 mg PO DAILY #10 tablet 09/10/18 Unknown Rx Phenazopyridine [Pyridium] 200 mg PO BID PRN #10 tab 09/10/18 Unknown Rx Sulfamethoxazole/Trimethoprim 1 each PO BID #20 tablet 09/10/18 Unknown Rx [Bactrim DS TAB] ALBUTEROL Inhaler (OR & NICU) 2 puff IH QID PRN #1 inhalation 04/26/19 Unknown Rx [ProAir HFA Inhaler] Benzonatate [Tessalon Perles] 100 mg PO Q8HR PRN #20 capsule 04/26/19 Unknown Rx Prednisone [predniSONE 10 mg 10 mg PO .TAPER #1 tab.ds.pk 04/26/19 Unknown Rx (6-Day Pack, 21 Tabs)] ED Physical Exam - General Limitations: No Limitations General appearance: alert, in no apparent distress - Head Head exam: Present: atraumatic, normocephalic - Eye Eye exam: Present: normal appearance - ENT ENT exam: Present: mucous membranes moist - Neck Neck exam: Present: normal inspection - Respiratory Respiratory exam: Present: normal lung sounds bilaterally. Absent: respiratory distress, wheezes, rales - Cardiovascular Cardiovascular Exam: Present: regular rate, normal rhythm. Absent: systolic murmur, diastolic murmur, rubs, gallop - GI/Abdominal GI/Abdominal exam: Present: soft, normal bowel sounds. Absent: distended, tenderness, guarding - Rectal Rectal exam: Present: deferred - External exam: Present: normal external exam Speculum exam: Present: other (nurse Violet in the room during entire pelvic exam. Nitrazine test positive. Small amount of clear fluid coming from the vagina.) - Extremities Exam Extremities exam: Present: normal inspection - Back Exam Back exam: Present: normal inspection - Neurological Exam Neurological exam: Present: alert, oriented X3 - Psychiatric Psychiatric exam: Present: normal affect, normal mood - Skin Skin exam: Present: warm, dry, intact, normal color. Absent: rash ED Course Vital Signs 07/01/19 07/01/19 07/01/19 20:54 21:00 21:19 Temperature Pulse Rate 119 H 125 H Respiratory 15 Rate Blood Pressure 125/62 126/73 126/73 Blood Pressure [Left] O2 Sat by Pulse 100 Oximetry 07/01/19 07/01/19 07/01/19 21:20 21:30 21:46 Temperature 98.8 F Pulse Rate 112 H 111 H 98 H Respiratory 16 13 11 L Rate Blood Pressure 113/72 113/72 Blood Pressure 126/73 [Left] O2 Sat by Pulse 100 100 99 Oximetry 07/01/19 07/01/19 07/01/19 22:00 22:16 22:30 Temperature Pulse Rate 93 H 89 90 Respiratory 15 16 20 Rate Blood Pressure 107/71 113/72 113/79 Blood Pressure [Left] O2 Sat by Pulse 99 100 98 Oximetry 07/01/19 07/01/19 07/02/19 22:46 23:00 00:16 Temperature Pulse Rate 84 90 92 H Respiratory 16 13 Rate Blood Pressure 113/79 109/69 117/73 Blood Pressure [Left] O2 Sat by Pulse 100 96 Oximetry 07/02/19 07/02/19 00:46 01:00 Temperature Pulse Rate 106 H 95 H Respiratory 13 18 Rate Blood Pressure 109/69 111/73 Blood Pressure [Left] O2 Sat by Pulse 99 99 Oximetry - Reevaluation(s) Reevaluation #1: Nurse in the room during pelvic exam. Nitrazine test done and positive with a blue color change. 07/01/19 21:35 \ Reevaluation #2: I discussed all results with patient. I discussed plan of care outpatient. Patient agrees with plan of care. Miscarriage precautions given to patient. Patient stable for discharge. Patient will be discharged home. Patient given discharge instructions. Patient voiced understanding of all instructions. 07/02/19 01:15 I discussed with the lab the urinalysis and the lab checked the urine for a trich, clue cells and yeast. Urine negative for yeast, trichomoniasis, clue cells. 07/02/19 01:20 - Consultations Consultation #1: Discussed case with Dr. Bingham, [facility]. Dr. Bingham states the patient is stable for discharge and needs to follow-up with [facility] in 2 days. 07/02/19 01:07 ED Medical Decision Making - Lab Data Result diagrams: 07/01/19 21:52 07/01/19 21:52 - Radiology Data Radiology results: report reviewed Early obstetrical ultrasound INDICATION: , vaginal discharge TECHNIQUE: Transabdominal and endovaginal COMPARISON: None recent Uterus measures 10.1 cm in length. Intrauterine gestational sac is seen in the fundus. pole and yolk sac are seen. cardiac activity is noted with heart rate recorded at 149 bpm. Estimated gestational age by crown-rump length is 7 weeks 1 day which is slightly less in the 8 weeks 4 days estimated by clinical dating. A small implantational bleed is seen adjacent to the sac measuring only approximately 15 mm. Right ovary measures 4.2 cm in length and shows small follicular-type cysts. Left ovary measures 3.9 cm in length and shows a slightly complex 2.1 cm cyst which may be a corpus luteum cyst. No free fluid is seen. IMPRESSION: Early intrauterine is seen with only a small adjacent implantational bleed. - Medical Decision Making Teresita is a 18-year-old female that presents emergency room with complaints of clear fluid per vagina and began 6 weeks . Patient had an ultrasound which shows a positive IUP early . Patient's nitrazine test was positive. Patient not have any abdominal pain or abdominal tenderness. Patient stable for discharge. Patient discharged home. Patient given miscarriage precautions. Patient instructed to follow-up with [facility] within 2-3 days. Patient to rest. Patient increase water. - Differential Diagnosis miscarriage. Fluid per vagina. Critical care attestation.: If time is entered above; I have spent that time in minutes in the direct care of this critically ill patient, excluding procedure time. ED Disposition Clinical Impression: Clear vaginal discharge, Threatened miscarriage in early Qualifiers: Weeks of gestation: less than 8 weeks Qualified Code(s): Z3A.01 - Less than 8 weeks gestation of Disposition: DC-01 TO HOME OR SELFCARE Is pt being admited?: No Does the pt Need Aspirin: No Condition: Stable Instructions: Threatened Miscarriage (ED), (ED) Additional Instructions: Patient to follow-up with [facility] in 2-3 days. Patient to follow-up with primary care in 2-3 days. Patient to return to ER if condition worsens. Patient to rest. Nothing per vagina until cleared by [facility]. Patient increase water. Patient to continue vitamin. Patient to eat regularly. Referrals: PARK DOS SANTOS MD [Primary Care Provider] - 2-3 Days FLOR QUIROZ MD [Staff Physician] - 2-3 Days Forms: Work/School Release Form(ED) Time of Disposition: 01:17
[2019-07-01 22:30] LABS: Basophils % (Auto) 0.3 % (0.0-1.8); Eosinophils % (Auto) 0.5 % (0.0-4.3); Hematocrit 42.7 % (30.3-42.9); Hemoglobin 14.6 gm/dl (10.1-14.3); Lymphocytes # (Auto) 1.7 K/mm3 (1.2-5.4); Lymphocytes % (Auto) 18.2 % (13.4-35.0); Mean Corpuscular HGB Conc 34 % (30-34); Mean Corpuscular Volume 91 fl (79-97); Monocytes # (Auto) 0.9 K/mm3 (0.0-0.8); Monocytes % (Auto) 9.4 % (0.0-7.3); Platelet Count 245 K/mm3 (140-440); Red Blood Count 4.68 M/mm3 (3.65-5.03); Red Cell Distribution Width 12.9 % (13.2-15.2)
[2019-07-01 22:48] LABS: Alanine Aminotransferase 24 units/L (7-56); Albumin 4.5 g/dL (3.9-5); BUN/Creatinine Ratio 23; Blood Urea Nitrogen 25 mg/dL (7-17); Calcium 9.8 mg/dL (8.4-10.2); Hemolysis Index 6
[2019-07-01 23:08] LABS: Bilirubin,Direct < 0.2 mg/dL (0-0.2)
[2019-07-01 23:17] LABS: Bilirubin,Urine NEG (Negative); Blood,Urine NEG (Negative); Color,Urine Yellow (Yellow); Mucus,Urine FEW /HPF; Protein,Urine <15 mg/dL mg/dL (Negative); RBC,Urine < 1.0 /HPF (0.0-6.0); Urobilinogen,Urine < 2.0 mg/dL (<2.0)
--- NOTE | 2019-07-02 00:43 | Ultrasound Report ---
Early obstetrical ultrasound INDICATION: , vaginal discharge TECHNIQUE: Transabdominal and endovaginal COMPARISON: None recent Uterus measures 10.1 cm in length. Intrauterine gestational sac is seen in the fundus. pole and yolk sac are seen. cardiac activity is noted with heart rate recorded at 149 bpm. Estima emanuel gestational age by crown-rump length is 7 weeks 1 day which is slightly less in the 8 weeks 4 day s estimated by clinical dating. A small implantational bleed is seen adjacent to the sac measuring on ly approximately 15 mm. Right ovary measures 4.2 cm in length and shows small follicular-type cysts. Left ovary measures 3.9 cm in length and shows a slightly complex 2.1 cm cyst which may be a corpus luteum cyst. No free flui d is seen. IMPRESSION: Early intrauterine is seen with only a small adjacent implantational bleed. Signer Name: Aston Jordan MD Signed: 07/02/2019 12:39 AM Workstation Name: [email or web address]
[2019-07-02 01:10] VITALS: BP 111/73
== END 2019-07-02 01:36 | disposition home or self-care (01) ==
LOC: ED 20:36
DX: O20.0 Threatened abortion (principal); O99.511 Diseases of the respiratory system complicating pregnancy, first trimester; J45.909 Unspecified asthma, uncomplicated; Z88.0 Allergy status to penicillin; Z88.2 Allergy status to sulfonamides; Z88.8 Allergy status to other drugs, medicaments and biological substances; Z79.899 Other long term (current) drug therapy; Z3A.01 Less than 8 weeks gestation of pregnancy
CPT/HCPCS: 36415; 76801; 76817; 80048; 80076; 81001; 84702; 85025; 86900; 86901; 99285

== ENCOUNTER 2019-07-17 14:52 | Emergency (ER) | payer BC, MEDICAID ==
--- NOTE | 2019-07-17 15:44 | Emergency Department Report ---
Blank Doc - Documentation Documentation: 18-year-old female that presents with URI symptoms. Stated is 9 weeks . This initial assessment/diagnostic orders/clinical plan/treatment(s) is/are subject to change based on patient's health status, clinical progression and re- assessment by fellow clinical providers in the ED. Further treatment and workup at subsequent clinical providers discretion. Patient/guardians urged not to elope from the ED as their condition may be serious if not clinically assessed and managed. Initial orders include: 1- Patient sent to [facility] for further evaluation and treatment 2- flu swab
--- NOTE | 2019-07-17 17:09 | Emergency Department Report ---
- General Chief Complaint: Upper Respiratory Infection Stated Complaint: 9 WKS /PAIN Time Seen by Provider: 07/17/19 15:43 Source: patient Mode of arrival: Ambulatory Limitations: No Limitations - History of Present Illness Initial Comments: pt is a 18 yo female who presents to the ED with c/o URI symptoms that began a week ago. has associated congestion, dry cough, occasional epistaxis, itchy throat. she states she has had intermittent N/V throughout her . she denies any abd pain, diarrhea, fever, vaginal bleeding, ear pain. she states she has had a sick contact with URI symptoms. pt is currently 9 weeks , she states her [employer] TE[employer] is [employer]. PMHx asthma. allergy: PCN, bactrim. - Related Data Previous Rx's Medication Instructions Recorded Last Taken Type Cyclobenzaprine [Flexeril] 10 mg PO BID PRN #10 tablet 12/08/17 Unknown Rx Ibuprofen [Motrin] 600 mg PO Q8H PRN #30 tablet 12/08/17 Unknown Rx Acetaminophen [Tylenol Arthritis] 650 mg PO Q6HR PRN #30 tablet.er 04/23/18 Unknown Rx Ibuprofen [Motrin] 600 mg PO Q8H PRN #30 tablet 04/23/18 Unknown Rx Ondansetron [Zofran Odt] 4 mg PO Q8HR PRN #20 tab.rapdis 04/23/18 Unknown Rx Meloxicam 15 mg PO DAILY #10 tablet 09/10/18 Unknown Rx Phenazopyridine [Pyridium] 200 mg PO BID PRN #10 tab 09/10/18 Unknown Rx Sulfamethoxazole/Trimethoprim 1 each PO BID #20 tablet 09/10/18 Unknown Rx [Bactrim DS TAB] ALBUTEROL Inhaler (OR & NICU) 2 puff IH QID PRN #1 inhalation 04/26/19 Unknown Rx [ProAir HFA Inhaler] Benzonatate [Tessalon Perles] 100 mg PO Q8HR PRN #20 capsule 04/26/19 Unknown Rx Prednisone [predniSONE 10 mg 10 mg PO .TAPER #1 tab.ds.pk 04/26/19 Unknown Rx (6-Day Pack, 21 Tabs)] ALBUTEROL Inhaler (OR & NICU) 2 puff IH QID PRN #8.5 gram 07/17/19 Unknown Rx [ProAir HFA Inhaler] Albuterol Sulfate [Albuterol 0.63% 0.63 mg IH TID PRN #1 box 07/17/19 Unknown Rx NEBS] Azithromycin [Zithromax TAB] 250 mg PO QDAY 5 Days #6 tablet 07/17/19 Unknown Rx Cetirizine HCl [Zyrtec 10mg tab] 10 mg PO DAILY #7 tablet 07/17/19 Unknown Rx Nebulizer and Compressor [Portable 1 each MC TID PRN #1 each 07/17/19 Unknown Rx Nebulizer System] Ondansetron [Zofran Odt] 4 mg PO Q8HR PRN #12 tab.rapdis 07/17/19 Unknown Rx Sodium Chloride [Saline Nasal 1 spray NS TID #1 spray 07/17/19 Unknown Rx [place]] Allergies Allergy/AdvReac Type Severity Reaction Status Date / Time Penicillins Allergy Hives Verified 04/26/19 18:55 sulfamethoxazole Allergy Hives Verified 04/26/19 18:55 [From Bactrim] trimethoprim [From Bactrim] Allergy Hives Verified 04/26/19 18:55 ED Review of Systems ROS: Stated complaint: 9 WKS /PAIN Other details as noted in HPI Comment: All other systems reviewed and negative ED Past Medical Hx - Past Medical History Previous Medical History?: Yes Hx Asthma: Yes Additional medical history: vaginal delivery 02-04-2015 - Surgical History Past Surgical History?: Yes Additional Surgical History: tonsils and adenoids - Social History Smoking Status: Never Smoker Substance Use Type: None - Medications Home Medications: Home Medications Medication Instructions Recorded Confirmed Last Taken Type Cyclobenzaprine [Flexeril] 10 mg PO BID PRN #10 tablet 12/08/17 Unknown Rx Ibuprofen [Motrin] 600 mg PO Q8H PRN #30 tablet 12/08/17 Unknown Rx Acetaminophen [Tylenol Arthritis] 650 mg PO Q6HR PRN #30 tablet.er 04/23/18 Unknown Rx Ibuprofen [Motrin] 600 mg PO Q8H PRN #30 tablet 04/23/18 Unknown Rx Ondansetron [Zofran Odt] 4 mg PO Q8HR PRN #20 tab.rapdis 04/23/18 Unknown Rx Meloxicam 15 mg PO DAILY #10 tablet 09/10/18 Unknown Rx Phenazopyridine [Pyridium] 200 mg PO BID PRN #10 tab 09/10/18 Unknown Rx Sulfamethoxazole/Trimethoprim 1 each PO BID #20 tablet 09/10/18 Unknown Rx [Bactrim DS TAB] ALBUTEROL Inhaler (OR & NICU) 2 puff IH QID PRN #1 inhalation 04/26/19 Unknown Rx [ProAir HFA Inhaler] Benzonatate [Tessalon Perles] 100 mg PO Q8HR PRN #20 capsule 04/26/19 Unknown Rx Prednisone [predniSONE 10 mg 10 mg PO .TAPER #1 tab.ds.pk 04/26/19 Unknown Rx (6-Day Pack, 21 Tabs)] ALBUTEROL Inhaler (OR & NICU) 2 puff IH QID PRN #8.5 gram 07/17/19 Unknown Rx [ProAir HFA Inhaler] Albuterol Sulfate [Albuterol 0.63% 0.63 mg IH TID PRN #1 box 07/17/19 Unknown Rx NEBS] Azithromycin [Zithromax TAB] 250 mg PO QDAY 5 Days #6 tablet 07/17/19 Unknown Rx Cetirizine HCl [Zyrtec 10mg tab] 10 mg PO DAILY #7 tablet 07/17/19 Unknown Rx Nebulizer and Compressor [Portable 1 each MC TID PRN #1 each 07/17/19 Unknown Rx Nebulizer System] Ondansetron [Zofran Odt] 4 mg PO Q8HR PRN #12 tab.rapdis 07/17/19 Unknown Rx Sodium Chloride [Saline Nasal 1 spray NS TID #1 spray 07/17/19 Unknown Rx [place]] ED Physical Exam - General Limitations: No Limitations General appearance: alert, in no apparent distress - Head Head exam: Present: atraumatic, normocephalic - Eye Eye exam: Present: normal appearance - ENT ENT exam: Present: normal orophraynx, mucous membranes moist, TM's normal bilaterally, normal external ear exam, other (mild edema of the turbinates, no purulent drainage, no sinus TTP) - Respiratory Respiratory exam: Present: wheezes (very mild expiratory wheeze). Absent: respiratory distress, rales, rhonchi, stridor, chest wall tenderness, accessory muscle use, decreased breath sounds, prolonged expiratory - Cardiovascular Cardiovascular Exam: Present: regular rate, normal rhythm, normal heart sounds. Absent: systolic murmur, diastolic murmur, rubs, gallop - Neurological Exam Neurological exam: Present: alert, oriented X3 - Psychiatric Psychiatric exam: Present: normal affect, normal mood - Skin Skin exam: Present: warm, dry, intact ED Course Vital Signs 07/17/19 07/17/19 15:44 17:37 Temperature 98.6 F 98.3 F Pulse Rate 108 H 94 H Respiratory 18 20 Rate Blood Pressure 126/82 Blood Pressure 130/88 [Right] O2 Sat by Pulse 99 98 Oximetry ED Medical Decision Making - Medical Decision Making pt is a 18 yo female who presents to the ED with c/o URI symptoms that began a week ago. has associated congestion, dry cough, occasional epistaxis, itchy throat. she states she has had intermittent N/V throughout her . she denies any abd pain, diarrhea, fever, vaginal bleeding, ear pain. she states she has had a sick contact with URI symptoms. pt is currently 9 weeks , she states her [employer]CARE TE[employer] is [employer]. PMHx asthma. allergy: PCN, bactrim. initial vitals with tachycardia which improved upon repeat. rapid flu is negative. on exam: mild edema of the turbinates, no purulent drainage, no sinus TTP, very mild expiratory wheeze bilaterally, no rhonchi, no rales. Symptoms and examination consistent with bronchitis. Patient states that she takes Zofran for nausea and vomiting in but states that she ran out and has not had a chance to see her OB yet. Patient asked for refill of her Zofran. Patient given refill of her asthma medications and given medications for acute bronchitis. advised pt to please take medication as prescribed. please increase your fluid intake over the next several days. may use a humidifier, gargle with warm salt water, drink warm tea. follow up with your [employer]CARE TEACHER in the next 3 days for reexamination. return to the emergency room immediately for any new or worsening symptoms. - Differential Diagnosis URI, bronchitis, asthma, allergies, influenza, viral syndrome, PNA Critical care attestation.: If time is entered above; I have spent that time in minutes in the direct care of this critically ill patient, excluding procedure time. ED Disposition Clinical Impression: Nausea/vomiting in Acute bronchitis Qualifiers: Bronchitis organism: unspecified organism Qualified Code(s): J20.9 - Acute bronchitis, unspecified Disposition: DC-01 TO HOME OR SELFCARE Is pt being admited?: No Does the pt Need Aspirin: No Condition: Stable Instructions: Acute Bronchitis (ED) Additional Instructions: please take medication as prescribed. please increase your fluid intake over the next several days. may use a humidifier, gargle with warm salt water, drink warm tea. follow up with your DAYCARE TEACHER in the next 3 days for reexamination. return to the emergency room immediately for any new or worsening symptoms. Prescriptions: Albuterol Sulfate [Albuterol 0.63% NEBS] 0.63 mg IH TID PRN #1 box PRN Reason: Wheezing Nebulizer and Compressor [Portable Nebulizer System] 1 each MC TID PRN #1 each PRN Reason: Shortness Of Breath ALBUTEROL Inhaler (OR & NICU) [ProAir HFA Inhaler] 2 puff IH QID PRN #8.5 gram PRN Reason: Shortness Of Breath Sodium Chloride [Saline Nasal [place]] 1 spray NS TID #1 spray Azithromycin [Zithromax TAB] 250 mg PO QDAY 5 Days #6 tablet Ondansetron [Zofran Odt] 4 mg PO Q8HR PRN #12 tab.rapdis PRN Reason: Nausea And Vomiting Cetirizine HCl [Zyrtec 10mg tab] 10 mg PO DAILY #7 tablet Referrals: [facility] [Provider Group] - 2-3 Days Time of Disposition: 17:10 Print Language: PORTUGUESE
[2019-07-17 17:38] VITALS: BP 130/88
== END 2019-07-17 17:37 | disposition home or self-care (01) ==
LOC: ED 14:52
DX: O21.8 Other vomiting complicating pregnancy (principal); O99.511 Diseases of the respiratory system complicating pregnancy, first trimester; J20.9 Acute bronchitis, unspecified; Z88.2 Allergy status to sulfonamides; Z88.0 Allergy status to penicillin; Z3A.09 9 weeks gestation of pregnancy
CPT/HCPCS: 87400

== ENCOUNTER 2019-11-12 14:11 | Observation (INO) | payer MEDICAID ==
[2019-11-12] MEDS ORDERED: LACTATED RINGERS 1,000 ML ONE (14:51)
[2019-11-12] MEDS ORDERED: LACTATED RINGERS 500 ML IV ONE (15:20)
[2019-11-12 16:00] LABS: Bacteria,Urine 2+ /HPF (Negative); Bilirubin,Urine NEG (Negative); Blood,Urine SM (Negative); Color,Urine Yellow (Yellow); Mucus,Urine FEW /HPF; Protein,Urine <15 mg/dL mg/dL (Negative); Urobilinogen,Urine < 2.0 mg/dL (<2.0)
[2019-11-12] MEDS ORDERED: ONDANSETRON 4 MG/2 ML INJ IV ONE (16:00)
[2019-11-12] MEDS ORDERED: LACTATED RINGERS 1,000 ML IV SCH (16:00)
[2019-11-12] MEDS ORDERED: AZITHROMYCIN 250 MG TAB PO ONE (18:00)
[2019-11-12] MEDS: FLUCONAZOLE 100 MG TAB PO SCH (18:11)
[2019-11-12] MEDS ORDERED: metroNIDAZOLE 500 MG TAB PO SCH (18:30)
[2019-11-12] MEDS ORDERED: AZITHROMYCIN 1 GM ORAL PWDR PACKET PO ONE (18:32)
--- NOTE | 2019-11-12 18:59 | Ultrasound Report ---
US OB limited INDICATION / CLINICAL INFORMATION: RULE OUT PLACENTAL ABRUPTION. COMPARISON: 07/01/2019 FINDINGS: Single, viable intrauterine in breech presentation. heart rate 149. Placenta is fundal and to lower, so echogenicity is inhomogeneous. There are certainly areas of decre ased echogenicity at the level of placental implantation, and I cannot entirely exclude minimal abrup tion. IMPRESSION: 1. Inhomogeneity on the placenta is most likely due to its maturity (grade 3), but I cannot entirely exclude areas of minimal, early abruption. Signer Name: Cj Vanegas MD Signed: 11/12/2019 6:54 PM Workstation Name: [id number]
[2019-11-13] MEDS ORDERED: metroNIDAZOLE 500 MG TAB PO SCH (08:00)
[2019-11-13] MEDS: FLUCONAZOLE 100 MG TAB PO SCH (10:08)
--- NOTE | 2019-11-13 12:11 | Ultrasound Report ---
Limited OB ultrasound INDICATION: Clinical concern for placental abruption, well being FINDINGS: There is a single intrauterine in a cephalic presentation. Amniotic fluid index is 17.2 cm which is within the normal range. The placenta is located anterior and to the left and is grade 1. No abruption is seen. heart rate is 146 bpm. IMPRESSION: No abruption is seen. Biophysical profile INDICATION: well-being COMPARISON: None FINDINGS: breathing movement: 0/2 movement: 2/2 posture and tone: 2/2 Qualitative amniotic fluid volume: 2/2 IMPRESSION: Total score for biophysical profile is 6/8 heart rate is 155 bpm Signer Name: Herson Josue MD Signed: 11/13/2019 12:07 PM Workstation Name: [id number]
[2019-11-13 12:46] VITALS: BP 123/71
== END 2019-11-13 13:25 | disposition home or self-care (01) ==
LOC: TRG 14:11 → LD 22:02 → TRG 22:02
PROVIDERS: ADMIT Obstetrics & Gynecology; ATTEND Obstetrics & Gynecology
DX: O32.1XX0 Maternal care for breech presentation, not applicable or unspecified (principal); O26.892 Other specified pregnancy related conditions, second trimester; R10.9 Unspecified abdominal pain; R11.0 Nausea; Z3A.27 27 weeks gestation of pregnancy
CPT/HCPCS: 76815; 76819; 81001; 87086; 87210; 87591; 96374; G0378; J2405; J7120

== ENCOUNTER 2020-01-13 21:51 | Emergency (ER) | payer MEDICAID ==
[2020-01-13 22:23] LABS: Bacteria,Urine 1+ /HPF (Negative); Bilirubin,Urine NEG (Negative); Blood,Urine NEG (Negative); Color,Urine Yellow (Yellow); Mucus,Urine FEW /HPF
--- NOTE | 2020-01-14 01:32 | Emergency Department Report ---
ED Female HPI - General Chief complaint: Urogenital-Female Stated complaint: VAGINAL ITCHING Source: patient Mode of arrival: Ambulatory Limitations: No Limitations - History of Present Illness Initial comments: Patient is a A0 19-year-old -Armenian female who is approximately 36 weeks gestation and who presented to the ED with acute onset persistent vaginal itching with thick cottage cheese looking vaginal discharge and vaginal discomfort for the last 2 days. Patient states that she has had intermittent nausea and vomiting even when waiting in the ED for evaluation. Patient states that the nausea and vomiting symptoms have been present throughout her . Patient denies abdominal pain, dysuria, urinary frequency and urgency, vaginal bleeding, dizziness, syncope, chest pain, shortness of breath, headache, low back pain and diarrhea MD Complaint: vaginal discharge, other (vaginal itching) -: Sudden, days(s) (2) Location: other (vaginal) Radiation: non-radiating Severity: moderate Severity scale (0 -10): 5 Quality: dull, other (itchy) Consistency: constant Improves with: none Worsens with: none Are you Now?: Yes (36 weeks gestation) Associated Symptoms: denies other symptoms, vaginal discharge. denies: vaginal bleeding, abdominal pain, nausea/vomiting, fever/chills, headaches, loss of appetite, dysuria, hematuria, rash, seizure, shortness of breath, syncope, weakness, other - Related Data Sexually active: Yes : 2 Para: 1 A: 0 Previous Rx's Medication Instructions Recorded Last Taken Type Cyclobenzaprine [Flexeril] 10 mg PO BID PRN #10 tablet 12/08/17 Unknown Rx Ibuprofen [Motrin] 600 mg PO Q8H PRN #30 tablet 12/08/17 Unknown Rx Acetaminophen [Tylenol Arthritis] 650 mg PO Q6HR PRN #30 tablet.er 04/23/18 Unknown Rx Ibuprofen [Motrin] 600 mg PO Q8H PRN #30 tablet 04/23/18 Unknown Rx Ondansetron [Zofran Odt] 4 mg PO Q8HR PRN #20 tab.rapdis 04/23/18 Unknown Rx Meloxicam 15 mg PO DAILY #10 tablet 09/10/18 Unknown Rx Phenazopyridine [Pyridium] 200 mg PO BID PRN #10 tab 09/10/18 Unknown Rx Sulfamethoxazole/Trimethoprim 1 each PO BID #20 tablet 09/10/18 Unknown Rx [Bactrim DS TAB] Albuterol INH(or & Nicu Only) 2 puff IH QID PRN #1 inhalation 04/26/19 Unknown Rx [ProAir HFA Inhaler] Benzonatate [Tessalon Perles] 100 mg PO Q8HR PRN #20 capsule 04/26/19 Unknown Rx Prednisone [predniSONE 10 mg 10 mg PO .TAPER #1 tab.ds.pk 04/26/19 Unknown Rx (6-Day Pack, 21 Tabs)] Albuterol INH(or & Nicu Only) 2 puff IH QID PRN #8.5 gram 07/17/19 Unknown Rx [ProAir HFA Inhaler] Albuterol Sulfate [Albuterol 0.63% 0.63 mg IH TID PRN #1 box 07/17/19 Unknown Rx NEBS] Azithromycin [Zithromax TAB] 250 mg PO QDAY 5 Days #6 tablet 07/17/19 Unknown Rx Cetirizine HCl [Zyrtec 10mg tab] 10 mg PO DAILY #7 tablet 07/17/19 Unknown Rx Nebulizer and Compressor [Portable 1 each MC TID PRN #1 each 07/17/19 Unknown Rx Nebulizer System] Ondansetron [Zofran Odt] 4 mg PO Q8HR PRN #12 tab.rapdis 07/17/19 Unknown Rx Sodium Chloride [Saline Nasal 1 spray NS TID #1 spray 07/17/19 Unknown Rx [place]] Miconazole 2% [Monistat] 1 applicator VG QHS #1 tube 01/14/20 Unknown Rx Nitrofurantoin [place]/M-Cryst 100 mg PO Q12HR #14 capsule 01/14/20 Unknown Rx [Macrobid CAP] metroNIDAZOLE [Flagyl] 500 mg PO Q12HR #14 tab 01/14/20 Unknown Rx Allergies Allergy/AdvReac Type Severity Reaction Status Date / Time Penicillins Allergy Hives Verified 04/26/19 18:55 sulfamethoxazole Allergy Hives Verified 04/26/19 18:55 [From Bactrim] trimethoprim [From Bactrim] Allergy Hives Verified 04/26/19 18:55 ED Review of Systems ROS: Stated complaint: VAGINAL ITCHING Other details as noted in HPI Constitutional: denies: chills, fever Eyes: denies: eye pain, eye discharge, vision change ENT: denies: ear pain, throat pain Respiratory: denies: cough, shortness of breath, wheezing Cardiovascular: denies: chest pain, palpitations Endocrine: no symptoms reported Gastrointestinal: nausea, vomiting. denies: abdominal pain, diarrhea Genitourinary: discharge, other (Vaginal itching). denies: urgency, dysuria Musculoskeletal: denies: back pain, joint swelling, arthralgia Skin: denies: rash, lesions Neurological: denies: headache, weakness, paresthesias Psychiatric: denies: anxiety, depression Hematological/Lymphatic: denies: easy bleeding, easy bruising ED Past Medical Hx - Past Medical History Hx Hypertension: No Hx Diabetes: No Hx Deep Vein Thrombosis: No Hx Renal Disease: No Hx Sickle Cell Disease: No Hx Seizures: No Hx Asthma: Yes (LAST USED INHALER 2 WEEKS AGO) Hx COPD: No Hx HIV: No Additional medical history: vaginal delivery 02-04-2015 - Surgical History Additional Surgical History: tonsils and adenoids - Social History Smoking Status: Never Smoker Substance Use Type: None - Medications Home Medications: Home Medications Medication Instructions Recorded Confirmed Last Taken Type Cyclobenzaprine [Flexeril] 10 mg PO BID PRN #10 tablet 12/08/17 Unknown Rx Ibuprofen [Motrin] 600 mg PO Q8H PRN #30 tablet 12/08/17 Unknown Rx Acetaminophen [Tylenol Arthritis] 650 mg PO Q6HR PRN #30 tablet.er 04/23/18 Unknown Rx Ibuprofen [Motrin] 600 mg PO Q8H PRN #30 tablet 04/23/18 Unknown Rx Ondansetron [Zofran Odt] 4 mg PO Q8HR PRN #20 tab.rapdis 04/23/18 Unknown Rx Meloxicam 15 mg PO DAILY #10 tablet 09/10/18 Unknown Rx Phenazopyridine [Pyridium] 200 mg PO BID PRN #10 tab 09/10/18 Unknown Rx Sulfamethoxazole/Trimethoprim 1 each PO BID #20 tablet 09/10/18 Unknown Rx [Bactrim DS TAB] Albuterol INH(or & Nicu Only) 2 puff IH QID PRN #1 inhalation 04/26/19 Unknown Rx [ProAir HFA Inhaler] Benzonatate [Tessalon Perles] 100 mg PO Q8HR PRN #20 capsule 04/26/19 Unknown Rx Prednisone [predniSONE 10 mg 10 mg PO .TAPER #1 tab.ds.pk 04/26/19 Unknown Rx (6-Day Pack, 21 Tabs)] Albuterol INH(or & Nicu Only) 2 puff IH QID PRN #8.5 gram 07/17/19 Unknown Rx [ProAir HFA Inhaler] Albuterol Sulfate [Albuterol 0.63% 0.63 mg IH TID PRN #1 box 07/17/19 Unknown Rx NEBS] Azithromycin [Zithromax TAB] 250 mg PO QDAY 5 Days #6 tablet 07/17/19 Unknown Rx Cetirizine HCl [Zyrtec 10mg tab] 10 mg PO DAILY #7 tablet 07/17/19 Unknown Rx Nebulizer and Compressor [Portable 1 each MC TID PRN #1 each 07/17/19 Unknown Rx Nebulizer System] Ondansetron [Zofran Odt] 4 mg PO Q8HR PRN #12 tab.rapdis 07/17/19 Unknown Rx Sodium Chloride [Saline Nasal 1 spray NS TID #1 spray 07/17/19 Unknown Rx [place]] Miconazole 2% [Monistat] 1 applicator VG QHS #1 tube 01/14/20 Unknown Rx Nitrofurantoin [place]/M-Cryst 100 mg PO Q12HR #14 capsule 01/14/20 Unknown Rx [Macrobid CAP] metroNIDAZOLE [Flagyl] 500 mg PO Q12HR #14 tab 01/14/20 Unknown Rx ED Physical Exam - General Limitations: No Limitations General appearance: alert, in no apparent distress - Head Head exam: Present: atraumatic, normocephalic, normal inspection - Eye Eye exam: Present: normal appearance, PERRL, EOMI Pupils: Present: normal accommodation - ENT ENT exam: Present: normal exam, normal orophraynx, mucous membranes moist, TM's normal bilaterally, normal external ear exam - Neck Neck exam: Present: normal inspection, full ROM - Respiratory Respiratory exam: Present: normal lung sounds bilaterally. Absent: respiratory distress, wheezes, rales, rhonchi, chest wall tenderness, accessory muscle use, decreased breath sounds - Cardiovascular Cardiovascular Exam: Present: regular rate, normal rhythm, normal heart sounds. Absent: systolic murmur, diastolic murmur, rubs, gallop - GI/Abdominal GI/Abdominal exam: Present: soft, normal bowel sounds, other (Gravid abdomen). 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 Absent: tenderness, CVA tenderness (R), muscle spasm, paraspinal tenderness, vertebral tenderness - Neurological Exam Neurological exam: Present: alert, oriented X3, CN II-XII intact, normal gait, reflexes normal - Psychiatric Psychiatric exam: Present: normal affect, normal mood - Skin Skin exam: Present: warm, dry, intact, normal color. Absent: rash ED Course Vital Signs 01/13/20 21:55 Temperature 98.3 F Pulse Rate 91 H Respiratory 18 Rate Blood Pressure 140/86 O2 Sat by Pulse 99 Oximetry ED Medical Decision Making - Medical Decision Making This is a A0 19-year-old -Armenian female who is approximately 36 weeks gestation and who presented to the ED with acute onset persistent vaginal itching with thick cottage cheese looking vaginal discharge and vaginal discomfort for the last 2 days. Patient states that she has had intermittent nausea and vomiting even when waiting in the ED for evaluation. Patient states that the nausea and vomiting symptoms have been present throughout her . In the ED, patient is alert and oriented x3 and is not in distress. Lab test results were reviewed and are all nonactionable except for urinalysis that showed significant UTI and yeast in the urine. Pelvic exam showed significant thick cottage cheese white discharge with a fishy smell in the vaginal vault with no vaginal bleeding. Patient was discharged home on antibiotics for urinary tract infection and advised to obtain Monistat [id number] for vaginal candidiasis. Patient was advised to follow-up with her [employer]ITICAL SCIENCE INSTRUCTOR physician in 5 to 7 days for reevaluation. Patient was advised to return to the ED immediately if symptoms get worse. - Differential Diagnosis Bacterial vaginosis; Miesha vaginitis; UTI; STD Critical care attestation.: If time is entered above; I have spent that time in minutes in the direct care of this critically ill patient, excluding procedure time. ED Disposition Clinical Impression: Acute urinary tract infection, Candidal vaginitis, Bacterial vaginosis Disposition: - TO HOME OR SELFCARE Is pt being admited?: No Does the pt Need Aspirin: No Condition: Stable Instructions: Vaginitis (ED), Urinary Tract Infection in Women (ED), Bacterial Vaginosis (ED) Additional Instructions: Take medication with food, drink plenty of fluids and follow-up with your POLITICAL SCIENCE INSTRUCTOR physician in 5 to 7 days for reevaluation. Return to the ED immediately if symptoms get worse. Prescriptions: Miconazole 2% [Monistat] 1 applicator VG QHS #1 tube metroNIDAZOLE [Flagyl] 500 mg PO Q12HR #14 tab Nitrofurantoin [place]/M-Cryst [Macrobid CAP] 100 mg PO Q12HR #14 capsule Referrals: PRIMARY CARE, [Primary Care Provider] - 3-5 Days Forms: STI Treatment and Prevention Time of Disposition: 01:36 Print Language: SAO TOMEAN
== END 2020-01-14 02:18 | disposition home or self-care (01) ==
LOC: ED 21:51
DX: O23.42 Unspecified infection of urinary tract in pregnancy, second trimester (principal); O23.593 Infection of other part of genital tract in pregnancy, third trimester; B96.89 Other specified bacterial agents as the cause of diseases classified elsewhere; J45.909 Unspecified asthma, uncomplicated; Z79.899 Other long term (current) drug therapy; Z88.0 Allergy status to penicillin; Z88.2 Allergy status to sulfonamides; Z88.8 Allergy status to other drugs, medicaments and biological substances; Z3A.36 36 weeks gestation of pregnancy
CPT/HCPCS: 81001; 87086; 99283

== ENCOUNTER 2020-02-06 16:00 | Outpatient (CLI) | payer MEDICAID ==
[2020-02-06 16:22] VITALS: BP 121/80
== END 2020-02-06 18:08 | disposition home or self-care (01) ==
LOC: TRG 16:00 → APU 16:02 → TRG 18:08
PROVIDERS: ATTEND Obstetrics & Gynecology
DX: O47.1 False labor at or after 37 completed weeks of gestation (principal); Z3A.40 40 weeks gestation of pregnancy
CPT/HCPCS: 59025

== ENCOUNTER 2020-02-08 11:53 | Inpatient (IN) | payer MEDICAID ==
[2020-02-08] MEDS ORDERED: TERBUTALINE 1 MG/1 ML INJ IVP PRN (13:42)
[2020-02-08] MEDS ORDERED: LIDOCAINE (2%) 20 MG/1 ML VIAL 20 ML MDV INFILTRATI ONE (13:42)
[2020-02-08] MEDS ORDERED: fentaNYL 100 MCG/2 ML INJ IV PRN (13:42)
[2020-02-08] MEDS ORDERED: BUTORPHANOL 2 MG/1 ML INJ IV PRN ×2 (13:42)
[2020-02-08] MEDS ORDERED: MINERAL OIL 30 ML ORAL LIQD PO PRN (13:42)
[2020-02-08] MEDS ORDERED: ePHEDrine SULFATE 50 MG/1 ML INJ IV PRN (13:42)
[2020-02-08] MEDS ORDERED: TERBUTALINE 1 MG/1 ML INJ SUB-Q PRN (13:42)
[2020-02-08] MEDS ORDERED: OXYTOCIN DRIP 30 UNITS/500 ML BAG IV SCH (14:00)
[2020-02-08] MEDS ORDERED: OXYTOCIN 20 UNIT/1000ML DRIP 20 UNITS/1,000 ML BAG IV SCH (14:00)
--- NOTE | 2020-02-08 14:02 | History and Physical Report ---
History of Present Illness Date of examination: 02/08/20 Date of admission: 02/08/20 Chief complaint: leaking fluid. Sent from the office for NST and BPP History of present illness: 19yo G 2 P 1 0 0 1 at 40 weeks 2 days here with c/o leaking fluid. She was seen at the office today. Nitrazine test was neg. NST non-reactive. BPP 04/13. She reports +FMs but denies UCs or VB. She is a [facility] patient who initiated care at 8 weeks gestation. Her course was significant for h/o asthma (no recent attacks) and Trichomonas vaginitis (treated; ADAM?). LABS: O pos, Antibody Screen neg, RI, VDRL NR, HBsAg neg, HIV neg, Diabetes Screen 138, GC/CT neg, Trich 01/03 pos. GBS pos. Past History - Obstetrical History Expected Date of Delivery: 02/06/20 Actual Gestation: 40 Week(s) 2 Day(s) : 2 Para: 1 Hx # Term Pregnancies: 1 Number of Pregnancies: 0 Spontaneous Abortions: 0 Induced : 0 Number of Living Children: 1 #1 Gender: Female year: 2[age][birth year] (02/04/2017) Birthweight: 3.232 kg (7 lbs 2 oz) Method of Delivery: Vaginal Gestational age at delivery: 40 Complications: none Medications and Allergies Allergies Allergy/AdvReac Type Severity Reaction Status Date / Time Penicillins Allergy Hives Verified 04/26/19 18:55 sulfamethoxazole Allergy Hives Verified 04/26/19 18:55 [From Bactrim] trimethoprim [From Bactrim] Allergy Hives Verified 04/26/19 18:55 Home Medications Medication Instructions Recorded Confirmed Last Taken Type Cyclobenzaprine [Flexeril] 10 mg PO BID PRN #10 tablet 12/08/17 Unknown Rx Ibuprofen [Motrin] 600 mg PO Q8H PRN #30 tablet 12/08/17 Unknown Rx Acetaminophen [Tylenol Arthritis] 650 mg PO Q6HR PRN #30 tablet.er 04/23/18 Unknown Rx Ibuprofen [Motrin] 600 mg PO Q8H PRN #30 tablet 04/23/18 Unknown Rx Ondansetron [Zofran Odt] 4 mg PO Q8HR PRN #20 tab.rapdis 04/23/18 Unknown Rx Meloxicam 15 mg PO DAILY #10 tablet 09/10/18 Unknown Rx Phenazopyridine [Pyridium] 200 mg PO BID PRN #10 tab 09/10/18 Unknown Rx Sulfamethoxazole/Trimethoprim 1 each PO BID #20 tablet 09/10/18 Unknown Rx [Bactrim DS TAB] Albuterol INH(or & Nicu Only) 2 puff IH QID PRN #1 inhalation 04/26/19 Unknown Rx [ProAir HFA Inhaler] Benzonatate [Tessalon Perles] 100 mg PO Q8HR PRN #20 capsule 04/26/19 Unknown Rx Prednisone [predniSONE 10 mg 10 mg PO .TAPER #1 tab.ds.pk 04/26/19 Unknown Rx (6-Day Pack, 21 Tabs)] Albuterol INH(or & Nicu Only) 2 puff IH QID PRN #8.5 gram 07/17/19 Unknown Rx [ProAir HFA Inhaler] Albuterol Sulfate [Albuterol 0.63% 0.63 mg IH TID PRN #1 box 07/17/19 Unknown Rx NEBS] Azithromycin [Zithromax TAB] 250 mg PO QDAY 5 Days #6 tablet 07/17/19 Unknown Rx Cetirizine HCl [Zyrtec 10mg tab] 10 mg PO DAILY #7 tablet 07/17/19 Unknown Rx Nebulizer and Compressor [Portable 1 each MC TID PRN #1 each 07/17/19 Unknown Rx Nebulizer System] Ondansetron [Zofran Odt] 4 mg PO Q8HR PRN #12 tab.rapdis 07/17/19 Unknown Rx Sodium Chloride [Saline Nasal 1 spray NS TID #1 spray 07/17/19 Unknown Rx [place]] Miconazole 2% [Monistat] 1 applicator VG QHS #1 tube 01/14/20 Unknown Rx Nitrofurantoin [place]/M-Cryst 100 mg PO Q12HR #14 capsule 01/14/20 Unknown Rx [Macrobid CAP] metroNIDAZOLE [Flagyl] 500 mg PO Q12HR #14 tab 01/14/20 Unknown Rx Active Meds: Active Medications Butorphanol Tartrate (Stadol) 1 mg IV Q2H PRN PRN Reason: Pain, Moderate(4-6) LABOR PAIN Butorphanol Tartrate (Stadol) 2 mg IV Q2H PRN PRN Reason: Pain , Severe (7-10) Ephedrine Sulfate (Ephedrine Sulfate) 10 mg IV Q2M PRN PRN Reason: Hypotension Fentanyl (Sublimaze) 100 mcg IV Q2H PRN PRN Reason: Pain,Severe (7-10) LABOR PAIN Oxytocin/Sodium Chloride (Pitocin/Ns 20 Unit/1000ml Drip) 20 units in 1,000 mls @ 125 mls/hr IV DIRECT TRI Oxytocin/Sodium Chloride (Pitocin/Ns 30 Unit/500ml) 30 units in 500 mls @ 0 mls/hr IV TITR TRI; Protocol Lactated Ringer's (Lactated Ringers) 1,000 mls @ 125 mls/hr IV DIRECT TRI Vancomycin HCl (Vancomycin/Ns 1 Gm/250 Ml) 1 gm in 250 mls @ 167.007 mls/hr IV Q12H TRI; Protocol Mineral Oil (Mineral Oil) 30 ml PO QHS PRN PRN Reason: Constipation Terbutaline Sulfate (Brethine) 0.25 mg SUB-Q ONCE PRN PRN Reason: Hyperstimulation/Hypertonicity Terbutaline Sulfate (Brethine) 0.25 mg IVP ONCE PRN PRN Reason: Hyperstimulation/Hypertonicity Review of Systems All systems: negative - Vital Signs Vital signs: Vital Signs Pulse Pulse Ox 134 H 100 02/08/20 12:12 02/08/20 12:12 Temp Pulse Resp BP Pulse Ox 98.6 F 96 H 20 118/73 99 02/08/20 12:14 02/08/20 13:53 02/08/20 12:14 02/08/20 12:15 02/08/20 13:53 Results Result Diagrams: 02/08/20 13:50 All other labs normal. Assessment and Plan - Patient Problems (1) 40 weeks gestation of Current Visit: Yes Status: Acute (2) Abnormal test Current Visit: Yes Status: Acute (3) Encounter for induction of labor Current Visit: Yes Status: Acute Plan to address problem: Admit to L&D with routine labor orders Oxytocin for labor induction Anticipate vaginal delivery (4) Group B Streptococcus carrier, +RV culture, currently Current Visit: Yes Status: Acute Plan to address problem: Start Vancomycin for GBS prophylaxis
[2020-02-08 14:47] LABS: Hematocrit 37.8 % (30.3-42.9); Hemoglobin 12.6 gm/dl (10.1-14.3); Mean Corpuscular HGB Conc 33 % (30-34); Mean Corpuscular Volume 90 fl (79-97); Platelet Count 249 K/mm3 (140-440); Red Blood Count 4.21 M/mm3 (3.65-5.03); Red Cell Distribution Width 13.3 % (13.2-15.2)
[2020-02-08] MEDS ORDERED: VANCOMYCIN/NS 1 GM/250 ML 1 GM/250 ML BAG IV SCH (15:00)
--- NOTE | 2020-02-08 15:02 | Ultrasound Report ---
Limited OB ultrasound INDICATION: Evaluate amniotic fluid index FINDINGS: There is a single intrauterine . Fetus is in cephalic presentation. Amniotic fluid index is normal measuring 9.1 cm. There appears to be debris within the amniotic fluid IMPRESSION: Amniotic fluid index is 9.1 cm. BIOPHYSICAL PROFILE FINDINGS: breathing movement: 2/2 movement: 2/2 posture and tone: 2/2 Qualitative amniotic fluid volume: 2/2 IMPRESSION: Total score for biophysical profile is 8/8 heart rate is 136 bpm Signer Name: Herson Josue MD Signed: 02/08/2020 2:58 PM Workstation Name: [id number]
[2020-02-08] MEDS: LACTATED RINGERS 1,000 ML IV SCH ×2 (15:30→23:05)
--- NOTE | 2020-02-08 19:45 | Progress Note ---
Subjective - Subjective Date of service: 02/08/20 Principal diagnosis: IUP Objective - Vital Signs Vital Signs: Vital Signs - 12hr 02/08/20 02/08/20 02/08/20 12:12 12:14 12:15 Temperature 98.6 F Pulse Rate 134 H 136 H 137 H Respiratory 20 Rate Blood Pressure 118/73 Blood Pressure 118/73 [Right] O2 Sat by Pulse 100 98 Oximetry 02/08/20 02/08/20 02/08/20 12:17 12:22 12:27 Temperature Pulse Rate 116 H 125 H 107 H Respiratory Rate Blood Pressure Blood Pressure [Right] O2 Sat by Pulse 98 98 98 Oximetry 02/08/20 02/08/20 02/08/20 12:32 12:37 12:42 Temperature Pulse Rate 116 H 104 H 115 H Respiratory Rate Blood Pressure Blood Pressure [Right] O2 Sat by Pulse 98 99 99 Oximetry 02/08/20 02/08/20 02/08/20 12:47 12:52 12:57 Temperature Pulse Rate 96 H 119 H 106 H Respiratory Rate Blood Pressure Blood Pressure [Right] O2 Sat by Pulse 99 98 99 Oximetry 02/08/20 02/08/20 02/08/20 13:02 13:07 13:12 Temperature Pulse Rate 126 H 97 H 89 Respiratory Rate Blood Pressure Blood Pressure [Right] O2 Sat by Pulse 97 96 99 Oximetry 02/08/20 02/08/20 02/08/20 13:17 13:22 13:27 Temperature Pulse Rate 107 H 94 H 103 H Respiratory Rate Blood Pressure Blood Pressure [Right] O2 Sat by Pulse 97 98 98 Oximetry 02/08/20 02/08/20 02/08/20 13:32 13:37 13:48 Temperature Pulse Rate 95 H 101 H 100 H Respiratory Rate Blood Pressure Blood Pressure [Right] O2 Sat by Pulse 99 98 100 Oximetry 02/08/20 02/08/20 02/08/20 13:53 15:09 15:14 Temperature Pulse Rate 96 H 106 H 112 H Respiratory Rate Blood Pressure Blood Pressure [Right] O2 Sat by Pulse 99 98 98 Oximetry 02/08/20 02/08/20 02/08/20 15:19 15:22 15:24 Temperature Pulse Rate 114 H 88 92 H Respiratory Rate Blood Pressure 115/71 Blood Pressure [Right] O2 Sat by Pulse 98 100 Oximetry 06/12/2402/08/20 02/08/20 15:30 15:35 15:40 Temperature Pulse Rate 111 H 121 H 87 Respiratory Rate Blood Pressure Blood Pressure [Right] O2 Sat by Pulse 99 98 99 Oximetry 02/08/20 02/08/20 02/08/20 15:45 15:50 15:55 Temperature Pulse Rate 139 H 122 H 103 H Respiratory Rate Blood Pressure Blood Pressure [Right] O2 Sat by Pulse 99 100 99 Oximetry 02/08/20 02/08/20 02/08/20 16:00 16:05 16:10 Temperature Pulse Rate 95 H 86 99 H Respiratory Rate Blood Pressure 121/84 Blood Pressure [Right] O2 Sat by Pulse 99 99 98 Oximetry 02/08/20 02/08/20 02/08/20 16:15 16:16 16:20 Temperature Pulse Rate 90 86 92 H Respiratory Rate Blood Pressure 135/87 Blood Pressure [Right] O2 Sat by Pulse 98 100 Oximetry 02/08/20 02/08/20 02/08/20 16:25 16:30 16:35 Temperature Pulse Rate 102 H 96 H 96 H Respiratory Rate Blood Pressure 112/75 Blood Pressure [Right] O2 Sat by Pulse 99 99 98 Oximetry 02/08/20 02/08/20 02/08/20 16:40 16:45 16:50 Temperature Pulse Rate 91 H 93 H 87 Respiratory Rate Blood Pressure 88/49 Blood Pressure [Right] O2 Sat by Pulse 98 98 99 Oximetry 02/08/20 02/08/20 02/08/20 16:55 17:00 17:05 Temperature Pulse Rate 101 H 85 95 H Respiratory Rate Blood Pressure 108/58 Blood Pressure [Right] O2 Sat by Pulse 99 99 98 Oximetry 02/08/20 02/08/20 02/08/20 17:10 17:15 17:16 Temperature Pulse Rate 89 90 88 Respiratory Rate Blood Pressure 107/62 Blood Pressure [Right] O2 Sat by Pulse 98 98 Oximetry 02/08/20 02/08/20 02/08/20 17:20 17:25 17:30 Temperature Pulse Rate 80 96 H 90 Respiratory Rate Blood Pressure Blood Pressure [Right] O2 Sat by Pulse 99 97 99 Oximetry 02/08/20 02/08/20 02/08/20 17:32 17:35 17:40 Temperature Pulse Rate 88 89 85 Respiratory Rate Blood Pressure 111/68 Blood Pressure [Right] O2 Sat by Pulse 99 98 Oximetry 02/08/20 02/08/20 02/08/20 17:45 17:50 17:55 Temperature Pulse Rate 86 90 91 H Respiratory Rate Blood Pressure Blood Pressure [Right] O2 Sat by Pulse 98 99 100 Oximetry 02/08/20 02/08/20 02/08/20 18:00 18:05 18:08 Temperature Pulse Rate 89 93 H 99 H Respiratory Rate Blood Pressure 113/75 Blood Pressure [Right] O2 Sat by Pulse 100 100 Oximetry 02/08/20 02/08/20 02/08/20 18:10 18:15 18:20 Temperature Pulse Rate 96 H 85 95 H Respiratory Rate Blood Pressure Blood Pressure [Right] O2 Sat by Pulse 100 100 100 Oximetry 02/08/20 02/08/20 02/08/20 18:25 18:30 18:31 Temperature 99 F Pulse Rate 93 H 95 H Respiratory Rate Blood Pressure Blood Pressure [Right] O2 Sat by Pulse 100 99 Oximetry 02/08/20 02/08/20 02/08/20 18:35 18:40 18:45 Temperature Pulse Rate 82 88 95 H Respiratory Rate Blood Pressure 106/60 Blood Pressure [Right] O2 Sat by Pulse 98 100 100 Oximetry 02/08/20 02/08/20 02/08/20 18:50 18:55 19:00 Temperature Pulse Rate 93 H 77 84 Respiratory Rate Blood Pressure Blood Pressure [Right] O2 Sat by Pulse 100 100 100 Oximetry 02/08/20 02/08/20 19:05 19:08 Temperature Pulse Rate 91 H 80 Respiratory Rate Blood Pressure 106/65 Blood Pressure [Right] O2 Sat by Pulse 100 Oximetry - Labs Labs: Laboratory Results - last 24 hr 02/08/20 02/08/20 02/08/20 13:50 13:50 13:50 WBC 9.1 RBC 4.21 Hgb 12.6 Hct 37.8 MCV 90 MCH 30 MCHC 33 RDW 13.3 Plt Count 249 Syphilis IgG Antibody Non-reactive Blood Type O POSITIVE Antibody Screen Negative
[2020-02-08] MEDS ORDERED: ONDANSETRON 4 MG/2 ML INJ IV PRN (22:05)
--- NOTE | 2020-02-08 23:03 | Progress Note ---
Assessment and Plan A: IUP At 40. 2 wks post dates + GBS CAT II FHT p : AROM cl fluid Continue monitoring Anticipate POC agrees with plan - Patient Problems (1) Post-dates Current Visit: Yes Status: Acute (2) Abnormal test Current Visit: Yes Status: Acute (3) Encounter for induction of labor Current Visit: Yes Status: Acute (4) Group B Streptococcus carrier, +RV culture, currently Current Visit: Yes Status: Acute Subjective - Subjective Date of service: 02/08/20 Principal diagnosis: post dates Patient reports: movement normal Objective - Vital Signs Vital Signs: Vital Signs - 12hr 02/08/20 02/08/20 02/08/20 12:12 12:14 12:15 Temperature 98.6 F Pulse Rate 134 H 136 H 137 H Respiratory 20 Rate Blood Pressure 118/73 Blood Pressure 118/73 [Right] O2 Sat by Pulse 100 98 Oximetry 02/08/20 02/08/20 02/08/20 12:17 12:22 12:27 Temperature Pulse Rate 116 H 125 H 107 H Respiratory Rate Blood Pressure Blood Pressure [Right] O2 Sat by Pulse 98 98 98 Oximetry 02/08/20 02/08/20 02/08/20 12:32 12:37 12:42 Temperature Pulse Rate 116 H 104 H 115 H Respiratory Rate Blood Pressure Blood Pressure [Right] O2 Sat by Pulse 98 99 99 Oximetry 02/08/20 02/08/20 02/08/20 12:47 12:52 12:57 Temperature Pulse Rate 96 H 119 H 106 H Respiratory Rate Blood Pressure Blood Pressure [Right] O2 Sat by Pulse 99 98 99 Oximetry 02/08/20 02/08/20 02/08/20 13:02 13:07 13:12 Temperature Pulse Rate 126 H 97 H 89 Respiratory Rate Blood Pressure Blood Pressure [Right] O2 Sat by Pulse 97 96 99 Oximetry 02/08/20 02/08/20 02/08/20 13:17 13:22 13:27 Temperature Pulse Rate 107 H 94 H 103 H Respiratory Rate Blood Pressure Blood Pressure [Right] O2 Sat by Pulse 97 98 98 Oximetry 02/08/20 02/08/20 02/08/20 13:32 13:37 13:48 Temperature Pulse Rate 95 H 101 H 100 H Respiratory Rate Blood Pressure Blood Pressure [Right] O2 Sat by Pulse 99 98 100 Oximetry 02/08/20 02/08/20 02/08/20 13:53 15:09 15:14 Temperature Pulse Rate 96 H 106 H 112 H Respiratory Rate Blood Pressure Blood Pressure [Right] O2 Sat by Pulse 99 98 98 Oximetry 02/08/20 02/08/20 02/08/20 15:19 15:22 15:24 Temperature Pulse Rate 114 H 88 92 H Respiratory Rate Blood Pressure 115/71 Blood Pressure [Right] O2 Sat by Pulse 98 100 Oximetry 02/08/20 02/08/20 02/08/20 15:30 15:35 15:40 Temperature Pulse Rate 111 H 121 H 87 Respiratory Rate Blood Pressure Blood Pressure [Right] O2 Sat by Pulse 99 98 99 Oximetry 02/08/20 02/08/20 02/08/20 15:45 15:50 15:55 Temperature Pulse Rate 139 H 122 H 103 H Respiratory Rate Blood Pressure Blood Pressure [Right] O2 Sat by Pulse 99 100 99 Oximetry 02/08/20 02/08/20 02/08/20 16:00 16:05 16:10 Temperature Pulse Rate 95 H 86 99 H Respiratory Rate Blood Pressure 121/84 Blood Pressure [Right] O2 Sat by Pulse 99 99 98 Oximetry 02/08/20 02/08/20 02/08/20 16:15 16:16 16:20 Temperature Pulse Rate 90 86 92 H Respiratory Rate Blood Pressure 135/87 Blood Pressure [Right] O2 Sat by Pulse 98 100 Oximetry 02/08/20 02/08/20 02/08/20 16:25 16:30 16:35 Temperature Pulse Rate 102 H 96 H 96 H Respiratory Rate Blood Pressure 112/75 Blood Pressure [Right] O2 Sat by Pulse 99 99 98 Oximetry 02/08/20 02/08/20 02/08/20 16:40 16:45 16:50 Temperature Pulse Rate 91 H 93 H 87 Respiratory Rate Blood Pressure 88/49 Blood Pressure [Right] O2 Sat by Pulse 98 98 99 Oximetry 02/08/20 02/08/20 02/08/20 16:55 17:00 17:05 Temperature Pulse Rate 101 H 85 95 H Respiratory Rate Blood Pressure 108/58 Blood Pressure [Right] O2 Sat by Pulse 99 99 98 Oximetry 02/08/20 02/08/20 02/08/20 17:10 17:15 17:16 Temperature Pulse Rate 89 90 88 Respiratory Rate Blood Pressure 107/62 Blood Pressure [Right] O2 Sat by Pulse 98 98 Oximetry 02/08/20 02/08/20 02/08/20 17:20 17:25 17:30 Temperature Pulse Rate 80 96 H 90 Respiratory Rate Blood Pressure Blood Pressure [Right] O2 Sat by Pulse 99 97 99 Oximetry 02/08/20 02/08/20 02/08/20 17:32 17:35 17:40 Temperature Pulse Rate 88 89 85 Respiratory Rate Blood Pressure 111/68 Blood Pressure [Right] O2 Sat by Pulse 99 98 Oximetry 02/08/20 02/08/20 02/08/20 17:45 17:50 17:55 Temperature Pulse Rate 86 90 91 H Respiratory Rate Blood Pressure Blood Pressure [Right] O2 Sat by Pulse 98 99 100 Oximetry 02/08/20 02/08/20 02/08/20 18:00 18:05 18:08 Temperature Pulse Rate 89 93 H 99 H Respiratory Rate Blood Pressure 113/75 Blood Pressure [Right] O2 Sat by Pulse 100 100 Oximetry 02/08/20 02/08/20 02/08/20 18:10 18:15 18:20 Temperature Pulse Rate 96 H 85 95 H Respiratory Rate Blood Pressure Blood Pressure [Right] O2 Sat by Pulse 100 100 100 Oximetry 02/08/20 02/08/20 02/08/20 18:25 18:30 18:31 Temperature 99 F Pulse Rate 93 H 95 H Respiratory Rate Blood Pressure Blood Pressure [Right] O2 Sat by Pulse 100 99 Oximetry 02/08/20 02/08/20 02/08/20 18:35 18:40 18:45 Temperature Pulse Rate 82 88 95 H Respiratory Rate Blood Pressure 106/60 Blood Pressure [Right] O2 Sat by Pulse 98 100 100 Oximetry 02/08/20 02/08/20 02/08/20 18:50 18:55 19:00 Temperature Pulse Rate 93 H 77 84 Respiratory Rate Blood Pressure Blood Pressure [Right] O2 Sat by Pulse 100 100 100 Oximetry 02/08/20 02/08/20 02/08/20 19:05 19:08 19:10 Temperature Pulse Rate 91 H 80 84 Respiratory Rate Blood Pressure 106/65 Blood Pressure [Right] O2 Sat by Pulse 100 100 Oximetry 02/08/20 02/08/20 02/08/20 19:15 19:20 19:25 Temperature Pulse Rate 74 95 H 77 Respiratory Rate Blood Pressure Blood Pressure [Right] O2 Sat by Pulse 100 100 100 Oximetry 02/08/20 02/08/20 02/08/20 19:30 19:41 19:42 Temperature 97.8 F Pulse Rate 77 88 87 Respiratory 18 Rate Blood Pressure Blood Pressure 116/59 [Right] O2 Sat by Pulse 100 100 Oximetry 02/08/20 02/08/20 02/08/20 19:43 19:46 19:51 Temperature Pulse Rate 85 81 85 Respiratory Rate Blood Pressure 116/59 Blood Pressure [Right] O2 Sat by Pulse 99 99 Oximetry 02/08/20 02/08/20 02/08/20 19:56 20:01 20:06 Temperature Pulse Rate 90 75 84 Respiratory Rate Blood Pressure Blood Pressure [Right] O2 Sat by Pulse 99 100 100 Oximetry 02/08/20 02/08/20 02/08/20 20:09 20:11 20:16 Temperature Pulse Rate 78 77 70 Respiratory Rate Blood Pressure 122/62 Blood Pressure [Right] O2 Sat by Pulse 100 100 Oximetry 02/08/20 02/08/20 02/08/20 20:21 20:26 20:31 Temperature Pulse Rate 75 85 92 H Respiratory Rate Blood Pressure Blood Pressure [Right] O2 Sat by Pulse 100 98 100 Oximetry 02/08/20 02/08/20 02/08/20 20:36 20:39 20:41 Temperature Pulse Rate 88 85 89 Respiratory Rate Blood Pressure 125/81 Blood Pressure [Right] O2 Sat by Pulse 100 100 Oximetry 02/08/20 02/08/20 02/08/20 20:46 20:51 20:56 Temperature Pulse Rate 117 H 79 97 H Respiratory Rate Blood Pressure Blood Pressure [Right] O2 Sat by Pulse 100 100 100 Oximetry 02/08/20 02/08/20 02/08/20 21:01 21:06 21:10 Temperature Pulse Rate 88 87 83 Respiratory Rate Blood Pressure 112/71 Blood Pressure [Right] O2 Sat by Pulse 100 100 Oximetry 02/08/20 02/08/20 02/08/20 21:11 21:16 21:21 Temperature Pulse Rate 78 70 63 Respiratory Rate Blood Pressure Blood Pressure [Right] O2 Sat by Pulse 100 100 100 Oximetry 02/08/20 02/08/20 02/08/20 21:26 21:31 21:36 Temperature Pulse Rate 77 65 96 H Respiratory Rate Blood Pressure Blood Pressure [Right] O2 Sat by Pulse 100 100 100 Oximetry 02/08/20 02/08/20 02/08/20 21:38 21:41 21:46 Temperature Pulse Rate 65 88 69 Respiratory Rate Blood Pressure 119/64 Blood Pressure [Right] O2 Sat by Pulse 100 99 Oximetry 02/08/20 02/08/20 02/08/20 21:51 21:56 21:59 Temperature Pulse Rate 94 H 103 H 92 H Respiratory Rate Blood Pressure Blood Pressure [Right] O2 Sat by Pulse 99 100 90 Oximetry 02/08/20 02/08/20 02/08/20 22:01 22:06 22:08 Temperature Pulse Rate 86 81 72 Respiratory Rate Blood Pressure 124/75 Blood Pressure [Right] O2 Sat by Pulse 100 100 Oximetry 02/08/20 02/08/20 02/08/20 22:11 22:16 22:21 Temperature Pulse Rate 73 72 98 H Respiratory Rate Blood Pressure Blood Pressure [Right] O2 Sat by Pulse 100 100 97 Oximetry 02/08/20 02/08/20 02/08/20 22:26 22:31 22:36 Temperature Pulse Rate 74 101 H 71 Respiratory Rate Blood Pressure Blood Pressure [Right] O2 Sat by Pulse 100 96 99 Oximetry 02/08/20 02/08/20 02/08/20 22:39 22:41 22:46 Temperature Pulse Rate 79 79 93 H Respiratory Rate Blood Pressure 122/57 Blood Pressure [Right] O2 Sat by Pulse 91 100 97 Oximetry 02/08/20 02/08/20 22:51 22:56 Temperature Pulse Rate 81 77 Respiratory Rate Blood Pressure Blood Pressure [Right] O2 Sat by Pulse 93 96 Oximetry - Exam Breasts: normal Abdomen: Present: normal appearance, soft, other (gravid) Vulva: both: normal Uterus: Present: normal, firm FHR: category 1 Uterine Contraction Monitor Mode: External Cervical Dilatation: 6 Cervical Effacement Percentage: 80 station: -1 Uterine Contraction Frequency (min): q2-3 Uterine Contraction Pattern: Regular Uterine Tone Measurement Phase: Resting Uterine Contraction Intensity: Strong/Firm Extremities: normal - Labs Labs: Laboratory Results - last 24 hr 02/08/20 02/08/20 02/08/20 13:50 13:50 13:50 WBC 9.1 RBC 4.21 Hgb 12.6 Hct 37.8 MCV 90 MCH 30 MCHC 33 RDW 13.3 Plt Count 249 Syphilis IgG Antibody Non-reactive Blood Type O POSITIVE Antibody Screen Negative
[2020-02-08] MEDS ORDERED: DEXMEDETOMIDINE 200 MCG/2 ML VIAL IV ONE (23:46)
[2020-02-09] MEDS ORDERED: NALOXONE 2 MG/2 ML INJ IV PRN (00:08)
[2020-02-09] MEDS ORDERED: ePHEDrine SULFATE 50 MG/1 ML INJ IV PRN (00:08)
--- NOTE | 2020-02-09 00:10 | Anesthesia Consultation ---
Anesthesia Consult and Med Hx Date of service: 02/09/20 - Airway Anesthetic Teeth Evaluation: Good ROM Head & Neck: Adequate Mental/Hyoid Distance: Adequate Mallampati Class: Class II Intubation Access Assessment: Good - Pulmonary Exam CTA: Yes - Cardiac Exam Cardiac Exam: RRR - Pre-Operative Health Status ASA Pre-Surgery Classification: ASA2, Emergency Proposed Anesthetic Plan: Epidural - Pulmonary Hx Asthma: Yes (LAST USED INHALER LAST YEAR) COPD: No Hx Pneumonia: No - Cardiovascular System Hx Hypertension: No - Central Nervous System Hx Seizures: No Hx Psychiatric Problems: No - Endocrine Hx Renal Disease: No Hx End Stage Renal Disease: No Hx Hypothyroidism: No Hx Hyperthyroidism: No - Hematic Hx Anemia: Yes Hx Sickle Cell Disease: No - Other Systems Hx Alcohol Use: No
--- NOTE | 2020-02-09 00:11 | Progress Note ---
Labor Epidural - Labor Epidural Start Time: 23:50 Stop Time: 23:56 Performed by:: ADWOA MENENDEZ Procedure: Patient is requesting a laboring epidural for laboring pain. Patient IDed, H&P reviewed, all questions and concerns were answered, and consent was signed. Timeout was performed at bedside. Patient in sitting position. Sterile prep and drape was performed. 3 ml of 1% lidocaine skin wheal at L[3]- L [4]. 18- gauge Touhy epidural needle was advanced to loss of resistance with air technique. Negative CSF negative blood. Epidural catheter advanced to [15] centimeters. [-] Aspiration [-] test dose. Sterile dressing applied. Patient tolerated procedure.
[2020-02-09] MEDS ORDERED: fentaNYL-BUPIV 2 MCG/ML-0.125% 200 MCG/100 ML BAG EPIDURAL SCH (01:00)
[2020-02-09] MEDS: LACTATED RINGERS 1,000 ML IV SCH (02:38)
--- NOTE | 2020-02-09 03:18 | Progress Note ---
Assessment and Plan - Patient Problems (1) Post-dates Current Visit: Yes Status: Acute (2) Abnormal test Current Visit: Yes Status: Acute Plan to address problem: O: FHT with mod variability pos accels with repetitive variables down to 70s A: IUP@ 40.3 wks CAT II FHT p: Continue monitoring Resuscitative measures in place POC notified Anticipate (3) Encounter for induction of labor Current Visit: Yes Status: Acute (4) Group B Streptococcus carrier, +RV culture, currently Current Visit: Yes Status: Acute Subjective - Subjective Date of service: 02/09/20 Principal diagnosis: post dates Patient reports: movement normal Objective - Vital Signs Vital Signs: Vital Signs - 12hr 02/08/20 02/08/20 02/08/20 15:14 15:19 15:22 Temperature Pulse Rate 112 H 114 H 88 Respiratory Rate Blood Pressure 115/71 Blood Pressure [Right] O2 Sat by Pulse 98 98 Oximetry 02/08/20 02/08/20 02/08/20 15:24 15:30 15:35 Temperature Pulse Rate 92 H 111 H 121 H Respiratory Rate Blood Pressure Blood Pressure [Right] O2 Sat by Pulse 100 99 98 Oximetry 02/08/20 02/08/20 02/08/20 15:40 15:45 15:50 Temperature Pulse Rate 87 139 H 122 H Respiratory Rate Blood Pressure Blood Pressure [Right] O2 Sat by Pulse 99 99 100 Oximetry 02/08/20 02/08/20 02/08/20 15:55 16:00 16:05 Temperature Pulse Rate 103 H 95 H 86 Respiratory Rate Blood Pressure 121/84 Blood Pressure [Right] O2 Sat by Pulse 99 99 99 Oximetry 02/08/20 02/08/20 02/08/20 16:10 16:15 16:16 Temperature Pulse Rate 99 H 90 86 Respiratory Rate Blood Pressure 135/87 Blood Pressure [Right] O2 Sat by Pulse 98 98 Oximetry 02/08/20 02/08/20 02/08/20 16:20 16:25 16:30 Temperature Pulse Rate 92 H 102 H 96 H Respiratory Rate Blood Pressure 112/75 Blood Pressure [Right] O2 Sat by Pulse 100 99 99 Oximetry 02/08/20 02/08/20 02/08/20 16:35 16:40 16:45 Temperature Pulse Rate 96 H 91 H 93 H Respiratory Rate Blood Pressure 88/49 Blood Pressure [Right] O2 Sat by Pulse 98 98 98 Oximetry 02/08/20 02/08/20 02/08/20 16:50 16:55 17:00 Temperature Pulse Rate 87 101 H 85 Respiratory Rate Blood Pressure 108/58 Blood Pressure [Right] O2 Sat by Pulse 99 99 99 Oximetry 02/08/20 02/08/20 02/08/20 17:05 17:10 17:15 Temperature Pulse Rate 95 H 89 90 Respiratory Rate Blood Pressure Blood Pressure [Right] O2 Sat by Pulse 98 98 98 Oximetry 02/08/20 02/08/20 02/08/20 17:16 17:20 17:25 Temperature Pulse Rate 88 80 96 H Respiratory Rate Blood Pressure 107/62 Blood Pressure [Right] O2 Sat by Pulse 99 97 Oximetry 02/08/20 02/08/20 02/08/20 17:30 17:32 17:35 Temperature Pulse Rate 90 88 89 Respiratory Rate Blood Pressure 111/68 Blood Pressure [Right] O2 Sat by Pulse 99 99 Oximetry 02/08/20 02/08/20 02/08/20 17:40 17:45 17:50 Temperature Pulse Rate 85 86 90 Respiratory Rate Blood Pressure Blood Pressure [Right] O2 Sat by Pulse 98 98 99 Oximetry 02/08/20 02/08/20 02/08/20 17:55 18:00 18:05 Temperature Pulse Rate 91 H 89 93 H Respiratory Rate Blood Pressure Blood Pressure [Right] O2 Sat by Pulse 100 100 100 Oximetry 02/08/20 02/08/20 02/08/20 18:08 18:10 18:15 Temperature Pulse Rate 99 H 96 H 85 Respiratory Rate Blood Pressure 113/75 Blood Pressure [Right] O2 Sat by Pulse 100 100 Oximetry 02/08/20 02/08/20 02/08/20 18:20 18:25 18:30 Temperature Pulse Rate 95 H 93 H 95 H Respiratory Rate Blood Pressure Blood Pressure [Right] O2 Sat by Pulse 100 100 99 Oximetry 02/08/20 02/08/20 02/08/20 18:31 18:35 18:40 Temperature 99 F Pulse Rate 82 88 Respiratory Rate Blood Pressure 106/60 Blood Pressure [Right] O2 Sat by Pulse 98 100 Oximetry 02/08/20 02/08/20 02/08/20 18:45 18:50 18:55 Temperature Pulse Rate 95 H 93 H 77 Respiratory Rate Blood Pressure Blood Pressure [Right] O2 Sat by Pulse 100 100 100 Oximetry 02/08/20 02/08/20 02/08/20 19:00 19:05 19:08 Temperature Pulse Rate 84 91 H 80 Respiratory Rate Blood Pressure 106/65 Blood Pressure [Right] O2 Sat by Pulse 100 100 Oximetry 02/08/20 02/08/20 02/08/20 19:10 19:15 19:20 Temperature Pulse Rate 84 74 95 H Respiratory Rate Blood Pressure Blood Pressure [Right] O2 Sat by Pulse 100 100 100 Oximetry 02/08/20 02/08/20 02/08/20 19:25 19:30 19:41 Temperature Pulse Rate 77 77 88 Respiratory Rate Blood Pressure Blood Pressure [Right] O2 Sat by Pulse 100 100 100 Oximetry 02/08/20 02/08/20 02/08/20 19:42 19:43 19:46 Temperature 97.8 F Pulse Rate 87 85 81 Respiratory 18 Rate Blood Pressure 116/59 Blood Pressure 116/59 [Right] O2 Sat by Pulse 99 Oximetry 02/08/20 02/08/20 02/08/20 19:51 19:56 20:01 Temperature Pulse Rate 85 90 75 Respiratory Rate Blood Pressure Blood Pressure [Right] O2 Sat by Pulse 99 99 100 Oximetry 02/08/20 02/08/20 02/08/20 20:06 20:09 20:11 Temperature Pulse Rate 84 78 77 Respiratory Rate Blood Pressure 122/62 Blood Pressure [Right] O2 Sat by Pulse 100 100 Oximetry 02/08/20 02/08/20 02/08/20 20:16 20:21 20:26 Temperature Pulse Rate 70 75 85 Respiratory Rate Blood Pressure Blood Pressure [Right] O2 Sat by Pulse 100 100 98 Oximetry 02/08/20 02/08/20 02/08/20 20:31 20:36 20:39 Temperature Pulse Rate 92 H 88 85 Respiratory Rate Blood Pressure 125/81 Blood Pressure [Right] O2 Sat by Pulse 100 100 Oximetry 02/08/20 02/08/20 02/08/20 20:41 20:46 20:51 Temperature Pulse Rate 89 117 H 79 Respiratory Rate Blood Pressure Blood Pressure [Right] O2 Sat by Pulse 100 100 100 Oximetry 02/08/20 02/08/20 02/08/20 20:56 21:01 21:06 Temperature Pulse Rate 97 H 88 87 Respiratory Rate Blood Pressure Blood Pressure [Right] O2 Sat by Pulse 100 100 100 Oximetry 02/08/20 02/08/20 02/08/20 21:10 21:11 21:16 Temperature Pulse Rate 83 78 70 Respiratory Rate Blood Pressure 112/71 Blood Pressure [Right] O2 Sat by Pulse 100 100 Oximetry 02/08/20 02/08/20 02/08/20 21:21 21:26 21:31 Temperature Pulse Rate 63 77 65 Respiratory Rate Blood Pressure Blood Pressure [Right] O2 Sat by Pulse 100 100 100 Oximetry 02/08/20 02/08/20 02/08/20 21:36 21:38 21:41 Temperature Pulse Rate 96 H 65 88 Respiratory Rate Blood Pressure 119/64 Blood Pressure [Right] O2 Sat by Pulse 100 100 Oximetry 02/08/20 02/08/20 02/08/20 21:46 21:51 21:56 Temperature Pulse Rate 69 94 H 103 H Respiratory Rate Blood Pressure Blood Pressure [Right] O2 Sat by Pulse 99 99 100 Oximetry 02/08/20 02/08/20 02/08/20 21:59 22:01 22:06 Temperature Pulse Rate 92 H 86 81 Respiratory Rate Blood Pressure Blood Pressure [Right] O2 Sat by Pulse 90 100 100 Oximetry 02/08/20 02/08/20 02/08/20 22:08 22:11 22:16 Temperature Pulse Rate 72 73 72 Respiratory Rate Blood Pressure 124/75 Blood Pressure [Right] O2 Sat by Pulse 100 100 Oximetry 02/08/20 02/08/20 02/08/20 22:21 22:26 22:31 Temperature Pulse Rate 98 H 74 101 H Respiratory Rate Blood Pressure Blood Pressure [Right] O2 Sat by Pulse 97 100 96 Oximetry 02/08/20 02/08/20 02/08/20 22:36 22:39 22:41 Temperature Pulse Rate 71 79 79 Respiratory Rate Blood Pressure 122/57 Blood Pressure [Right] O2 Sat by Pulse 99 91 100 Oximetry 02/08/20 02/08/20 02/08/20 22:46 22:51 22:56 Temperature Pulse Rate 93 H 81 77 Respiratory Rate Blood Pressure Blood Pressure [Right] O2 Sat by Pulse 97 93 96 Oximetry 02/08/20 02/08/20 02/08/20 23:01 23:06 23:09 Temperature Pulse Rate 78 93 H 71 Respiratory Rate Blood Pressure 116/73 Blood Pressure [Right] O2 Sat by Pulse 100 100 94 Oximetry 02/08/20 02/08/20 02/08/20 23:11 23:15 23:16 Temperature Pulse Rate 69 77 92 H Respiratory Rate Blood Pressure Blood Pressure [Right] O2 Sat by Pulse 92 91 93 Oximetry 02/08/20 02/08/20 02/08/20 23:21 23:26 23:31 Temperature Pulse Rate 81 78 88 Respiratory Rate Blood Pressure Blood Pressure [Right] O2 Sat by Pulse 93 100 100 Oximetry 02/08/20 02/08/20 02/08/20 23:34 23:36 23:39 Temperature Pulse Rate 96 H 74 103 H Respiratory Rate Blood Pressure 148/79 Blood Pressure [Right] O2 Sat by Pulse 94 95 Oximetry 02/08/20 02/08/20 02/08/20 23:41 23:46 23:51 Temperature Pulse Rate 78 107 H 105 H Respiratory Rate Blood Pressure Blood Pressure [Right] O2 Sat by Pulse 100 100 99 Oximetry 02/08/20 02/08/20 02/08/20 23:52 23:54 23:56 Temperature Pulse Rate 78 105 H 76 Respiratory Rate Blood Pressure 142/76 149/93 150/82 Blood Pressure [Right] O2 Sat by Pulse 100 Oximetry 02/08/20 02/09/20 02/09/20 23:58 00:01 00:02 Temperature Pulse Rate 86 101 H 77 Respiratory Rate Blood Pressure 145/75 140/63 124/73 Blood Pressure [Right] O2 Sat by Pulse 99 Oximetry 02/09/20 02/09/20 02/09/20 00:04 00:06 00:08 Temperature Pulse Rate 86 90 77 Respiratory Rate Blood Pressure 138/69 126/74 126/75 Blood Pressure [Right] O2 Sat by Pulse 94 Oximetry 02/09/20 02/09/20 02/09/20 00:10 00:11 00:12 Temperature Pulse Rate 93 H 79 81 Respiratory Rate Blood Pressure 138/84 123/76 Blood Pressure [Right] O2 Sat by Pulse 100 Oximetry 02/09/20 02/09/20 02/09/20 00:14 00:16 00:18 Temperature Pulse Rate 90 90 76 Respiratory Rate Blood Pressure 124/78 112/64 130/86 Blood Pressure [Right] O2 Sat by Pulse 98 Oximetry 06/01/2302/09/20 02/09/20 00:20 00:21 00:22 Temperature Pulse Rate 87 76 87 Respiratory Rate Blood Pressure 117/79 111/64 Blood Pressure [Right] O2 Sat by Pulse 100 Oximetry 02/09/20 02/09/20 02/09/20 00:24 00:26 00:27 Temperature Pulse Rate 84 78 82 Respiratory Rate Blood Pressure 102/58 101/61 Blood Pressure [Right] O2 Sat by Pulse 100 Oximetry 02/09/20 02/09/20 02/09/20 00:31 00:34 00:36 Temperature Pulse Rate 75 77 81 Respiratory Rate Blood Pressure 109/59 95/52 99/58 Blood Pressure [Right] O2 Sat by Pulse 100 100 Oximetry 02/09/20 02/09/20 02/09/20 00:38 00:40 00:41 Temperature Pulse Rate 80 90 91 H Respiratory Rate Blood Pressure 97/64 100/69 Blood Pressure [Right] O2 Sat by Pulse 99 Oximetry 02/09/20 02/09/20 02/09/20 00:45 00:46 00:48 Temperature Pulse Rate 90 80 98 H Respiratory Rate Blood Pressure 122/85 110/67 106/67 Blood Pressure [Right] O2 Sat by Pulse 100 Oximetry 02/09/20 02/09/20 02/09/20 00:51 00:53 00:54 Temperature Pulse Rate 83 76 98 H Respiratory Rate Blood Pressure 102/59 105/66 Blood Pressure [Right] O2 Sat by Pulse 100 91 Oximetry 02/09/20 02/09/20 02/09/20 00:56 01:00 01:01 Temperature Pulse Rate 102 H 100 H 100 H Respiratory Rate Blood Pressure Blood Pressure [Right] O2 Sat by Pulse 100 84 72 L Oximetry 02/09/20 02/09/20 02/09/20 01:05 01:06 01:08 Temperature Pulse Rate 95 H 92 H 179 H Respiratory Rate Blood Pressure 122/83 117/74 110/83 Blood Pressure [Right] O2 Sat by Pulse 100 Oximetry 02/09/20 02/09/20 02/09/20 01:10 01:11 01:16 Temperature Pulse Rate 95 H 104 H Respiratory Rate Blood Pressure Blood Pressure [Right] O2 Sat by Pulse 88 100 100 Oximetry 02/09/20 02/09/20 02/09/20 01:19 01:21 01:25 Temperature Pulse Rate 115 H 92 H 94 H Respiratory Rate Blood Pressure 142/60 Blood Pressure [Right] O2 Sat by Pulse 75 L 100 93 Oximetry 02/09/20 02/09/20 02/09/20 01:26 01:31 01:36 Temperature Pulse Rate 100 H 120 H 77 Respiratory Rate Blood Pressure Blood Pressure [Right] O2 Sat by Pulse 90 99 100 Oximetry 02/09/20 02/09/20 02/09/20 01:41 01:45 01:46 Temperature Pulse Rate 89 74 112 H Respiratory Rate Blood Pressure Blood Pressure [Right] O2 Sat by Pulse 100 58 L 95 Oximetry 02/09/20 02/09/20 02/09/20 01:51 01:55 01:56 Temperature Pulse Rate 95 H 105 H 96 H Respiratory Rate Blood Pressure Blood Pressure [Right] O2 Sat by Pulse 100 94 100 Oximetry 02/09/20 02/09/20 02/09/20 02:01 02:06 02:08 Temperature Pulse Rate 104 H 82 107 H Respiratory Rate Blood Pressure Blood Pressure [Right] O2 Sat by Pulse 100 100 91 Oximetry 02/09/20 02/09/20 02/09/20 02:11 02:16 02:42 Temperature Pulse Rate 106 H 109 H 80 Respiratory Rate Blood Pressure 106/58 Blood Pressure [Right] O2 Sat by Pulse 100 100 Oximetry 02/09/20 02/09/20 02:57 03:12 Temperature Pulse Rate 79 68 Respiratory Rate Blood Pressure 108/65 84/47 Blood Pressure [Right] O2 Sat by Pulse Oximetry - Exam Breasts: deferred, normal Abdomen: Present: normal appearance, soft Vulva: both: normal Uterus: Present: normal FHR: category 2 Uterine Contraction Monitor Mode: External Cervical Dilatation: 9 Cervical Effacement Percentage: 100 station: 0 Uterine Contraction Pattern: Regular Uterine Tone Measurement Phase: Resting Uterine Contraction Intensity: Strong/Firm Extremities: normal - Labs Labs: Laboratory Results - last 24 hr 02/08/20 02/08/20 02/08/20 13:50 13:50 13:50 WBC 9.1 RBC 4.21 Hgb 12.6 Hct 37.8 MCV 90 MCH 30 MCHC 33 RDW 13.3 Plt Count 249 Syphilis IgG Antibody Non-reactive Blood Type O POSITIVE Antibody Screen Negative
--- NOTE | 2020-02-09 03:27 | Procedure Note ---
OB Delivery Note - Vaginal Delivery presentation: vertex Delivery position: OA Intrapartum events: prolonged 2nd stage>2.5hr, decreased FHT variability, mult.variable deceleratio Delivery induction: oxytocin Delivery augmentation: rupture of membranes, pitocin Delivery monitor: external FHT, external uterine Route of delivery: Delivery placenta: spontaneous Delivery cord: nuchal cord, 3 umbilical vessels Episiotomy: none Delivery laceration: none Anesthesia: epidural Delivery comments: Pt progressed to 10/100%/+1 and pushing restarted with Dr Salcido at bedside. of viable male in OA position. Spontaneous delivery of 's head and shoulders with a loose nuchal cord times 1 and terminal mec noted. Infant was placed on mothers chest for skin to skin bonding. 7/9. Delayed cord clamping x 5 min then cord was clamped times 2 then cut by FOB. Infant was given to awaiting NICU nurse for an initial evaul. Spontaneous delivery of intact placenta with 3CV. FF @ u1 with fundal massage and IV Pitocin. Exploration of tears revealed none. EBL 150 cc. Mom and baby stable. - A at 1 minute: 7 at 5 minutes: 9 Gender: Male ( wt [phone] gms)
[2020-02-09] MEDS ORDERED: ACETAMINOPHEN 325 MG TAB PO PRN (04:05)
[2020-02-09] MEDS ORDERED: WITCH HAZEL/ GLYCERIN PAD TP PRN (04:05)
[2020-02-09] MEDS ORDERED: ONDANSETRON 4 MG/2 ML INJ IV PRN (04:05)
[2020-02-09] MEDS ORDERED: PROMETHAZINE 25 MG RECT SUPP PR PRN (04:05)
[2020-02-09] MEDS ORDERED: LANOLIN/ZINC/DIMETHICONE (LANSINOH) 7 GM TP PRN (04:05)
[2020-02-09] MEDS ORDERED: diphenhydrAMINE 25 MG CAP PO PRN (04:05)
[2020-02-09] MEDS ORDERED: MAGNESIUM HYDROXIDE (MOM) ORAL LIQD UDC PO PRN (04:05)
[2020-02-09 04:41] LABS: Hemoglobin 10.4 gm/dl (10.1-14.3)
[2020-02-09] MEDS: IBUPROFEN 600 MG TAB PO SCH ×2 (06:20→12:10)
--- NOTE | 2020-02-09 14:34 | Post Anesthesia Evaluation ---
- Post Anesthesia Evaluation Patient Participated: Yes Airway Patent: Yes Stable Respiratory Function: Yes Nausea/Vomiting: No Temp > 96.8F: Yes Pain Manageable: Yes Adequeate Hydration: Yes Anesthesia Complications: No Block Receding Appropriately: Yes Patient on Ventilator: No
[2020-02-10] MEDS ORDERED: SIMETHICONE 80 MG CHEW TAB PO PRN (11:00)
[2020-02-10] MEDS: FERROUS SULFATE 325 MG TAB PO SCH (11:28)
[2020-02-10] MEDS: IBUPROFEN 600 MG TAB PO SCH ×3 (12:16→18:03)
--- NOTE | 2020-02-10 13:22 | Progress Note ---
Assessment and Plan A: day 1 S/P vaginal delivery. Anemia. P: Supplement with iron. Anticipate discharge tomorrow. Subjective - Subjective Date of service: 02/10/20 Principal diagnosis: day 1 S/P Interval history: Day 1 S/P vaginal delivery. Patient reports: appetite normal, voiding normally, pain well controlled, flatus, ambulating normally, no dizzy ambulation, no nauseated [place]: doing well Objective - Vital Signs Latest vital signs: Vital Signs Temp Pulse Resp BP Pulse Ox 02/10/20 08:29 98.0 F 74 18 110/75 98 02/10/20 01:17 97.8 F 86 20 112/72 99 02/09/20 16:54 98.0 F 90 18 116/71 97 Intake and Output 02/09/20 02/10/20 02/10/20 23:59 07:59 15:59 Intake Total 240 240 Output Total 200 Balance 40 240 Intake: Intake, Free Water 240 240 Output: Urine 200 Void 200 Other: Total, Output Amount 200 # Voids Void 1 2 - Exam Cardiovascular: Present: Regular rate, Normal S1, Normal S2 Lungs: Present: Clear to auscultation Abdomen: Present: normal appearance, soft. Absent: distention, tenderness, guarding, rigidity Uterus: Present: normal, firm, fundal height below umbilicus. Absent: bogginess, tenderness Extremities: Present: normal. Absent: tenderness
[2020-02-11] MEDS: IBUPROFEN 600 MG TAB PO SCH ×3 (00:14→12:49)
[2020-02-11] MEDS: FERROUS SULFATE 325 MG TAB PO SCH ×2 (00:14→10:25)
--- NOTE | 2020-02-11 10:19 | Progress Note ---
Assessment and Plan A: day 2 S/P . Anemia. P: Discharge patient home today. Discussed with patient discharge instructions and warning signs. Advised patient to continue taking her vitamins and iron supplements at home. Advised patient to avoid intercourse, lifting, housework. Advised patient to follow up at [facility] in 6 weeks for exam. Patient voiced understanding of all instructions. Subjective - Subjective Date of service: 02/11/20 Principal diagnosis: day 2 S/P Interval history: Day 2 S/P vaginal delivery. Patient desires discharge today. Patient reports: appetite normal, voiding normally, pain well controlled, flatus, ambulating normally, no dizzy ambulation, no nauseated : doing well Objective - Vital Signs Latest vital signs: Vital Signs Temp Pulse Resp BP Pulse Ox 02/11/20 08:34 97.9 F 16 119/79 02/11/20 01:35 97 H 18 102/59 98 02/11/20 01:30 98.4 F 02/10/20 17:40 98.1 F 74 18 114/81 99 Intake and Output 02/10/20 02/11/20 02/11/20 23:59 07:59 15:59 Intake Total 480 Balance 480 Intake: Intake, Free Water 480 Other: # Voids Void 1 - Exam Cardiovascular: Present: Regular rate, Normal S1, Normal S2 Lungs: Present: Clear to auscultation Abdomen: Present: normal appearance, soft, normal bowel sounds. Absent: distention, tenderness, guarding, rigidity Uterus: Present: normal, firm, fundal height below umbilicus. Absent: bogginess, tenderness Extremities: Present: normal. Absent: tenderness, edema
--- NOTE | 2020-02-11 10:22 | Discharge Summary ---
Providers - Providers Date of Admission: 02/08/20 11:54 Date of discharge: 02/11/20 Attending physician: ENID CJ MD Primary care physician: ENID JC MD Hospitalization Reason for admission: rupture of membranes Delivery: Episiotomy: none Laceration: none Other procedures: none complications: none Discharge diagnosis: IUP at term delivered [place] baby: male Pertinent studies: Labs Hospital course: Normal hospital course Condition at discharge: Good Disposition: DC-01 TO HOME OR SELFCARE - Discharge Diagnoses (1) Term delivered Status: Acute (2) Anemia Status: Acute Plan - Provider Discharge Summary Activity: routine, no sex for 6 weeks, no heavy lifting 4 weeks, no strenuous exercise Diet: routine Instructions: routine Additional instructions: Continue taking your vitamins and iron supplements at home. Call your doctor immediately for: * Fever > 100.5 * Heavy vaginal bleeding ( >1 pad per hour) * Severe persistent headache * Shortness of breath * Reddened, hot, painful area to leg or breast - Follow up plan Follow up: ENID JC MD [Primary Care Provider] - 6 Weeks
[2020-02-11 15:56] VITALS: BP 122/86
== END 2020-02-11 16:20 | disposition home or self-care (01) | DRG 775 ==
LOC: TRG 11:53 → APU 11:54 → LD 11:54 → TRG 14:44 → OB 02-09 04:35
PROVIDERS: ADMIT Obstetrics & Gynecology; ATTEND Obstetrics & Gynecology
PROC: 10E0XZZ Delivery of Products of Conception, External Approach (ICD-10-PCS; principal; 2020-02-09)
PROC: 3E0R3BZ Introduction of Anesthetic Agent into Spinal Canal, Percutaneous Approach (ICD-10-PCS; 2020-02-09)
PROC: 00HU33Z Insertion of Infusion Device into Spinal Canal, Percutaneous Approach (ICD-10-PCS; 2020-02-09)
DX: O99.824 Streptococcus B carrier state complicating childbirth (principal); Z3A.40 40 weeks gestation of pregnancy; Z37.0 Single live birth; Z88.0 Allergy status to penicillin; Z88.2 Allergy status to sulfonamides; O48.0 Post-term pregnancy; O63.1 Prolonged second stage (of labor); O69.81X0 Labor and delivery complicated by cord around neck, without compression, not applicable or unspecified; O90.81 Anemia of the puerperium; D64.9 Anemia, unspecified; O76 Abnormality in fetal heart rate and rhythm complicating labor and delivery
CPT/HCPCS: 36415; 59025; 76815; 76819; 85014; 85018; 85027; 86592; 86850; 86900; 86901; G0378; A6250; J2405; J2590; J3010; J3370; J3490; J7120